=== PATIENT | male | born 1950 | race Caucasian/White ===

== ENCOUNTER 2016-06-30 12:47 | Inpatient (IN) | payer MEDICARE ==
[2016-06-30] MEDS ORDERED: methylPREDNISolone SOD SUCCI 125 MG/2 ML VIAL IV STA (13:14)
[2016-06-30] MEDS ORDERED: SODIUM CHLORIDE 0.9% 1,000 ML IV STA (13:14)
[2016-06-30] MEDS ORDERED: IPRATROPIUM-ALBUTEROL 3 ML NEB INHALATION STA (13:14)
[2016-06-30] MEDS ORDERED: MAGNESIUM SULFATE-D5W PMX 1 GM in DEXTROSE/WATER 1 100ML.BAG IVPB STA (13:16)
--- NOTE | 2016-06-30 13:16 | ED ---
SOB HPI - General Chief Complaint: Shortness of Breath Stated Complaint: Difficulty Breathing Time Seen by Provider: 06/30/16 13:14 Source: patient, RN notes reviewed Mode of arrival: wheelchair Limitations: no limitations - History of Present Illness Initial Comments: This is a 58-year-old male who is been on medication for about a week for shortness breath and states he started getting worse about 2 or 3 days ago sweaty been on the medication. He hasn't dyspnea on exertion no chest pain is very short of breath. He also states he has some peripheral edema. MD Complaint: shortness of breath - Related Data Home Medications Medication Instructions Recorded Confirmed Omalizumab [Xolair] 300 mg SQ QMONTH 01/30/16 06/30/16 Albuterol Inhaler [Ventolin Hfa 2 puff INHALATION RT-QID PRN 06/30/16 06/30/16 Inhaler] Albuterol Nebulized [Ventolin 2.5 mg INHALATION RT-QID 06/30/16 06/30/16 Nebulized] Budesonide/Formoterol Fumarate 2 puff INHALATION BID 06/30/16 06/30/16 [Symbicort 160-4.5 Mcg Inhaler] Lasix (Unk Dose) 1 tab PO DAILY PRN 06/30/16 06/30/16 Levofloxacin [Levaquin] 500 mg PO DAILY 06/30/16 06/30/16 methylPREDNISolone [Medrol Dose See Taper PO DAILY 06/30/16 06/30/16 Pack] predniSONE 10 mg PO DAILY 06/30/16 06/30/16 Previous Rx's Medication Instructions Recorded Finasteride [Proscar] 5 mg PO DAILY tab 02/16/16 Lisinopril [Zestril] 10 mg PO DAILY tab 02/16/16 Montelukast [Singulair] 10 mg PO HS tab 02/16/16 Allergies Allergy/AdvReac Type Severity Reaction Status Date / Time No Known Allergies Allergy Verified 06/30/16 14:17 Review of Systems ROS Statement: Those systems with pertinent positive or pertinent negative responses have been documented in the HPI. ROS Other: All systems not noted in ROS Statement are negative. Past Medical History Past Medical History: Asthma, COPD, Hypertension, Osteoarthritis (OA), Prostate Disorder, Seizure Disorder Additional Past Medical History / Comment(s): epilepsy- last seizure?1970-takes dilantin, bronchitis, DIVERTICULITIS(HAD RESECTION), home 02 3 liters as needed , enlarged prostate, had pnuemovax vaccine 2012, and prevnar 13 in summer 2015. History of Any Multi-Drug Resistant Organisms: None Reported Past Surgical History: Bowel Resection, Joint Replacement Additional Past Surgical History / Comment(s): rt knee replacement,HAD BOWEL RESECTION D/T DIVERTICULITIS Past Anesthesia/Blood Transfusion Reactions: No Reported Reaction Past Psychological History: No Psychological Hx Reported Additional Psychological History / Comment(s): PT LIVES AT HOME WITH HIS . 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 PT STATED GETS PANIC ATTACKS WHEN HAVING DIFFICULTY BREATHING Smoking Status: Former smoker Past Alcohol Use History: None Reported Additional Past Alcohol Use History / Comment(s): STARTED SMOKING AT AGE 19 quit 3-2014 Past Drug Use History: None Reported - Past Family History Father Family Medical History: CVA/TIA, Myocardial Infarction ([place]) Additional Family Medical History / Comment(s): IN 2005 AT AGE 87 Mother Family Medical History: Myocardial Infarction ([place]) Additional Family Medical History / Comment(s): AT AGE 68 [place] General Exam - General Exam Comments Initial Comments: This is a well-developed well-nourished awake alert oriented times x3 male Limitations: no limitations General appearance: alert, anxious Head exam: Present: atraumatic, normocephalic, normal inspection Eye exam: Present: normal appearance, PERRL, EOMI. Absent: scleral icterus, conjunctival injection, periorbital swelling ENT exam: Present: normal exam, mucous membranes moist Neck exam: Present: normal inspection. Absent: tenderness, meningismus, lymphadenopathy Respiratory exam: Present: accessory muscle use, decreased breath sounds. Absent: respiratory distress, wheezes, rales, rhonchi, stridor Cardiovascular Exam: Present: normal rhythm, tachycardia, normal heart sounds. Absent: systolic murmur, diastolic murmur, rubs, gallop, clicks GI/Abdominal exam: Present: soft, normal bowel sounds. Absent: distended, tenderness, guarding, rebound, rigid Extremities exam: Present: full ROM, normal capillary refill, pedal edema. Absent: tenderness, joint swelling, calf tenderness Back exam: Present: normal inspection Neurological exam: Present: alert, oriented X3, CN II-XII intact Psychiatric exam: Present: normal affect, normal mood Skin exam: Present: warm, dry, intact, normal color. Absent: rash Course Vital Signs 06/30/16 06/30/16 06/30/16 13:04 13:30 13:47 Temperature 97.4 F L Pulse Rate 128 H 76 Respiratory 22 18 Rate Blood Pressure 136/71 O2 Sat by Pulse 87 L Oximetry 06/30/16 06/30/16 13:57 14:47 Temperature Pulse Rate 80 90 Respiratory 22 Rate Blood Pressure 99/65 O2 Sat by Pulse 94 L Oximetry - Reevaluation(s) Reevaluation #1: 06/30/16 15:40 Reevaluation patient reveals he is still dyspneic and demonstrating diffuse wheezing. The exertion causes dyspnea. Medical Decision Making - Medical Decision Making I did discuss findings with the patient and his the patient will be admitted with Dr. Miguel and consultation. The case is to be discussed with . - Lab Data Result diagrams: 06/30/16 13:25 06/30/16 13:25 Lab Results 06/30/16 06/30/16 06/30/16 Range/Units 13:25 13:25 13:25 WBC 6.1 (3.8-10.6) k/uL RBC 4.87 (4.30-5.90) m/uL Hgb 15.4 (13.0-17.5) gm/dL Hct 46.7 (39.0-53.0) % MCV 95.9 (80.0-100.0) fL MCH 31.5 (25.0-35.0) pg MCHC 32.9 (31.0-37.0) g/dL RDW 12.5 (11.5-15.5) % Plt Count 203 (150-450) k/uL Neutrophils % 55 % Lymphocytes % 24 % Monocytes % 7 % Eosinophils % 11 % Basophils % 1 % Neutrophils # 3.4 (1.3-7.7) k/uL Lymphocytes # 1.5 (1.0-4.8) k/uL Monocytes # 0.4 (0-1.0) k/uL Eosinophils # 0.7 (0-0.7) k/uL Basophils # 0.0 (0-0.2) k/uL PT (9.0-12.0) sec INR (<1.1) APTT (22.0-30.0) sec D-Dimer (<0.60) mg/L FEU Sodium 144 (137-145) mmol/L Potassium 4.2 (3.5-5.1) mmol/L Chloride 107 (98-107) mmol/L Carbon Dioxide 26 (22-30) mmol/L Anion Gap 11 mmol/L BUN 13 (9-20) mg/dL Creatinine 0.80 (0.66-1.25) mg/dL Est GFR (MDRD) Af Amer >60 (>60 ml/min/1.73 sqM) Est GFR (MDRD) Non-Af >60 (>60 ml/min/1.73 sqM) Glucose 98 (74-99) mg/dL Calcium 9.1 (8.4-10.2) mg/dL Magnesium 1.9 (1.6-2.3) mg/dL Total Bilirubin 0.4 (0.2-1.3) mg/dL AST 22 (17-59) U/L ALT 33 (21-72) U/L Alkaline Phosphatase 97 (38-126) U/L Total Creatine Kinase 84 (55-170) U/L CK-MB (CK-2) 4.5 H* (0.0-2.4) ng/mL CK-MB (CK-2) Rel Index 5.4 Troponin I <0.012 (0.000-0.034) ng/mL NT-Pro-B Natriuret Pep pg/mL Total Protein 6.6 (6.3-8.2) g/dL Albumin 4.0 (3.5-5.0) g/dL 06/30/16 06/30/16 Range/Units 13:25 13:25 WBC (3.8-10.6) k/uL RBC (4.30-5.90) m/uL Hgb (13.0-17.5) gm/dL Hct (39.0-53.0) % MCV (80.0-100.0) fL MCH (25.0-35.0) pg MCHC (31.0-37.0) g/dL RDW (11.5-15.5) % Plt Count (150-450) k/uL Neutrophils % % Lymphocytes % % Monocytes % % Eosinophils % % Basophils % % Neutrophils # (1.3-7.7) k/uL Lymphocytes # (1.0-4.8) k/uL Monocytes # (0-1.0) k/uL Eosinophils # (0-0.7) k/uL Basophils # (0-0.2) k/uL PT 11.3 (9.0-12.0) sec INR 1.1 (<1.1) APTT 26.2 (22.0-30.0) sec D-Dimer <0.17 (<0.60) mg/L FEU Sodium (137-145) mmol/L Potassium (3.5-5.1) mmol/L Chloride (98-107) mmol/L Carbon Dioxide (22-30) mmol/L Anion Gap mmol/L BUN (9-20) mg/dL Creatinine (0.66-1.25) mg/dL Est GFR (MDRD) Af Amer (>60 ml/min/1.73 sqM) Est GFR (MDRD) Non-Af (>60 ml/min/1.73 sqM) Glucose (74-99) mg/dL Calcium (8.4-10.2) mg/dL Magnesium (1.6-2.3) mg/dL Total Bilirubin (0.2-1.3) mg/dL AST (17-59) U/L ALT (21-72) U/L Alkaline Phosphatase (38-126) U/L Total Creatine Kinase (55-170) U/L CK-MB (CK-2) (0.0-2.4) ng/mL CK-MB (CK-2) Rel Index Troponin I (0.000-0.034) ng/mL NT-Pro-B Natriuret Pep 80 pg/mL Total Protein (6.3-8.2) g/dL Albumin (3.5-5.0) g/dL - EKG Data -: EKG Interpreted by Mi EKG shows normal: sinus rhythm (Sinus tachycardia with a rate of 104. Interval 168 QRS duration 90 QT/QTC of 336/441 occasional PVCs no acute ST-T wave changes.) - Radiology Data Radiology results: report reviewed (Trays reveal no acute findings.), image reviewed Critical Care Time Critical Care Time: Yes Critical Care Time: 32 minutes of critical care time which included the initial presentation with history physical lab and x-ray orders evaluation of the above. Reevaluation the patient to responsive therapy. Discussion with the patient family regarding the findings discussion with the physician covering Dr. Rose. Orders and documentation the above. Disposition Clinical Impression: Acute exacerbation of chronic obstructive airways disease, Adult respiratory distress syndrome, Failure of outpatient treatment Disposition: ADMITTED IP TO THIS HOSP Condition: Stable
[2016-06-30 13:43] LABS: Basophils % (A) 1 %; CH 32.2; CHCM 33.7; Eosinophils # (A) 0.7 k/uL (0-0.7); Eosinophils % (A) 11 %; HCT 46.7 % (39.0-53.0); HDW 2.31; HGB 15.4 gm/dL (13.0-17.5); Luc # (Auto) 0.15; Luc % (Auto) 2; Lymphocytes # (A) 1.5 k/uL (1.0-4.8); Lymphocytes % (A) 24 %; MCH 31.5 pg (25.0-35.0); MCHC 32.9 g/dL (31.0-37.0); MCV 95.9 fL (80.0-100.0); Mean Platelet Volume 6.5; Monocytes # (A) 0.4 k/uL (0-1.0); Monocytes % (A) 7 %; Neutrophils # (A) 3.4 k/uL (1.3-7.7); Neutrophils % (A) 55 %; RBC 4.87 m/uL (4.30-5.90); RDW 12.5 % (11.5-15.5); WBC 6.1 k/uL (3.8-10.6); WBC (Perox) 6.06
[2016-06-30 13:55] LABS: INR 1.1 (<1.1); Partial Thromboplastin Time 26.2 sec (22.0-30.0); Prothrombin Time 11.3 sec (9.0-12.0)
[2016-06-30 13:59] LABS: ALT 33 U/L (21-72); AST 22 U/L (17-59); Alkaline Phosphatase 97 U/L (38-126); Anion Gap 11 mmol/L; Blood Urea Nitrogen 13 mg/dL (9-20); Calcium 9.1 mg/dL (8.4-10.2); Carbon Dioxide 26 mmol/L (22-30); Chloride 107 mmol/L (98-107); Glucose 98 mg/dL (74-99); Magnesium 1.9 mg/dL (1.6-2.3); Non-African American GFR(MDRD) >60 (>60 ml/min/1.73 sqM); Potassium 4.2 mmol/L (3.5-5.1); Sodium 144 mmol/L (137-145); Total Bilirubin 0.4 mg/dL (0.2-1.3); Total Protein 6.6 g/dL (6.3-8.2)
[2016-06-30 14:01] LABS: Creatine Kinase 84 U/L (55-170)
[2016-06-30 14:14] LABS: Troponin I <0.012 ng/mL (0.000-0.034)
[2016-06-30 14:24] LABS: Creatine Kinase MB 4.5 ng/mL (0.0-2.4)
--- NOTE | 2016-06-30 14:53 | XR ---
EXAMINATION TYPE: XR chest 2V DATE OF EXAM: 06/30/2016 2:46 PM COMPARISON: Prior chest x-ray February 13, 2016. HISTORY: COPD with difficulty in breathing. TECHNIQUE: Frontal and lateral views of the chest are obtained. FINDINGS: Underlying emphysematous change is present. There is no focal air space opacity, pleural e ffusion, or pneumothorax seen. The cardiac silhouette size is within normal limits with atherosclero tic thoracic aorta. The osseous structures are demineralized. IMPRESSION: Chronic emphysematous change without acute pulmonary process. No significant change from prior.
[2016-06-30] MEDS: IPRATROPIUM-ALBUTEROL 3 ML NEB INHALATION SCH ×3 (18:39→23:05)
[2016-06-30 18:50] VITALS: BMI 23.6
[2016-06-30] MEDS: methylPREDNISolone SOD SUCCI 125 MG/2 ML VIAL IV SCH ×2 (20:30→23:39)
[2016-06-30 21:00] LABS: Glucose,Whole Blood 159 mg/dL (75-99)
[2016-06-30] MEDS: MONTELUKAST 10 MG TAB PO SCH (21:32)
[2016-06-30] MEDS ORDERED: ALBUTEROL INHALER 60 PUFF/8 GM INHALER INHALATION PRN (22:18)
[2016-06-30] MEDS ORDERED: LASIX PO PRN (22:18)
[2016-06-30] MEDS ORDERED: MAGNESIUM HYDROXIDE 2,400 MG/10 ML CUP PO PRN (22:56)
[2016-06-30] MEDS: SODIUM CHLORIDE 0.9% 1,000 ML IV SCH (23:41)
[2016-07-01] MEDS: IPRATROPIUM-ALBUTEROL 3 ML NEB INHALATION SCH ×5 (03:24→19:48)
[2016-07-01] MEDS: methylPREDNISolone SOD SUCCI 125 MG/2 ML VIAL IV SCH ×4 (05:57→23:25)
[2016-07-01 07:40] LABS: Glucose,Whole Blood 117 mg/dL (75-99)
[2016-07-01] MEDS: BUDESONIDE 0.5 MG/2 ML NEBU INHALATION SCH ×2 (07:56→19:48)
[2016-07-01] MEDS ORDERED: ALBUTEROL NEBULIZED 2.5 MG/3 ML INHALATION SCH (08:00)
--- NOTE | 2016-07-01 08:27 | HP ---
DATE OF ADMISSION: 06/30/2016 ADMISSION HISTORY AND PHYSICAL. His data: 5 feet 10 inches and height and weight 74.84 kg BSA 1.92 sq m, BMI 23.7 kg/sq m. Allergy is unknown. HISTORY AND CHIEF COMPLAINT: The patient came to the emergency room where he was seen by Dr. Christian Funes in the emergency room and he was in severe shortness of breath. Failure of outpatient treatment with the steroid as well as the Levaquin has been failed as an outpatient as was treated by Dr. Rose. HISTORY OF PRESENT ILLNESS: Mr. Sam Amaya who is 66-year-old white male, has a chronic exacerbation of COPD with chronic respiratory failure and he has been treated by Dr. Rose and Dr. Valdez Miguel where he was treated with Xolair and also he has underlying history of hypertension. Patient has presented to the emergency room with failure of the treatment as he was on Levaquin 500 mg daily and Medrol Dosepak with no improvement. However, he became worsening. He has also increased heart rate with tachycardia with difficulty walking due to his symptoms of the shortness of breath using his extra respiratory muscle and the intercostal of muscle of his chest. His past medical history of COPD, chronic oxygen and chronic respiratory failure. He has been treated by Dr. Rose and Dr. Valdez Miguel. His other medical history includes hypertension, benign prostatic hypertrophy. SOCIAL HISTORY: , has one daughter and grandchildren. HABITS: History of ex-smoker for he smoked for 35 years and 1 pack per day. Currently he quit smoking for the last 10 years. REVIEW OF SYSTEMS: Neuropsychiatry: Negative. He was ambulatory. However, severe shortness of breath. CARDIOVASCULAR: He had history of palpitation, respiratory severe shortness of breath with wheezing and inspiratory, expiratory wheezes with no relief from outpatient treatment. GI: He had history of chronic constipation and he had a distended abdomen; however, he stated that he wants to go to the bathroom and still distended. We will see tonight after he goes to the bathroom and if he had a good bowel movement or any further treatment. MUSCULOSKELETAL: He has generalized weakness. Psychiatry: No evidence of depression. Neurology: No history of stroke in the past. REVIEW OF SYSTEMS: Negative except for the respiratory with the shortness of breath, as well as GI with mild distention and he feels comfortable when he stands up as well as his tachycardia secondary to the pulmonary disease. PHYSICAL EXAMINATION: His vital signs indicating on admission he was 108, respiratory rate. His blood pressure uncontrolled 159/95 with Lisinopril. However, he stated that he has significant coughing which could be considered with the underlying Lisinopril. Respiratory rate was more than 22 per minute. However, recorded as 18. He is on 2 liters nasal cannula with 97%. HEENT: Head was normocephalic, atraumatic. Pupils equal and reactive. Oropharynx he had normal natural teeth. Uvula midline. However, in the ( ) he had specks of white spots indicating clinical yeast could be associated with the steroids as well as the current antibiotic and we will be starting him on Diflucan. The neck was supple. NOSE: No rhinitis. No JVD. No thyromegaly. No lymphadenopathy. Trachea midline. His chest is increased anteroposterior diameter with hyperexpansion. Chest x-ray was negative for pneumonia. However, he is coughing with the underlying tracheobronchitis. HEART: PMI in the fifth intercostal space outside midclavicular line with the underlying mild hypertension with mild hypertensive heart disease and with the tachycardia intermittently. ABDOMEN: Distended and rhythm on percussion. However, he wants to go to the have a bowel movement with have shortness of breath with walking to the bathroom and probably he may need bedside commode as I talked to the nurses. His extremity has a trace edema bilaterally with the question presence of pulmonary hypertension. NEUROLOGICAL: Examination cranial nerves II through XII intact. Motor and sensory intact. Reflexes was normal and no tremors. ASSESSMENT: 1. Failure of outpatient treatment for the exacerbation of chronic obstructive pulmonary disease. 2. Chronic obstructive pulmonary disease with acute exacerbation with the underlying chronic respiratory area with need for oxygen. 3. Cough with the possibility of tracheobronchitis in spite that chest x-ray is negative versus adverse effect of the Lisinopril, the SHELBY inhibitor. CK-MB was mildly elevated 4.5 on the laboratories and normal, albumin and influenza A and B was negative. On the chemistry, he had normal renal function and his glucose on admission was 98; however, with steroids started in the ER indicating the blood sugar was increased. His PT and INR was stable. D-dimer was less than 0.17 and he is on DVT prophylaxis. His white count was 6.1. The hemoglobin was 15.4. PLAN: We will be obtaining echocardiogram to rule out pulmonary hypertension as well. Continuing the current treatment and with steroids. Discontinue the Levaquin has not been effective and starting him on Zosyn IV piggyback q.12 hour as well as we are going to continue with the inhalation therapy with the albuterol and ipratropium combination as well as Pulmicort 0.5 mg q.12 hours and we will obtain laboratory tomorrow including serial magnesium to evaluate as well as lipid profile and obtain the echocardiogram to rule out pulmonary hypertension.
[2016-07-01] MEDS ORDERED: ENOXAPARIN 30 MG/0.3 ML SYRINGE SQ SCH (09:00)
[2016-07-01] MEDS ORDERED: LISINOPRIL 10 MG TAB PO SCH (09:00)
[2016-07-01] MEDS ORDERED: PIPERACILLIN-TAZOBACTAM 3.375 GM in DEXTROSE/WATER 1 50ML.BAG IVPB SCH (09:00)
[2016-07-01] MEDS ORDERED: LEVOFLOXACIN 500 MG TAB PO SCH (09:00)
[2016-07-01] MEDS: DILTIAZEM ORAL 30 MG TAB PO SCH ×3 (09:32→20:57)
[2016-07-01] MEDS: FINASTERIDE 5 MG TAB PO SCH (09:32)
[2016-07-01] MEDS: PIPERACILLIN-TAZOBACTAM 3.375 GM in DEXTROSE/WATER 1 50ML.BAG IVPB SCH ×2 (09:32→17:20)
[2016-07-01 09:36] LABS: Basophils % (A) 0 %; CH 32.1; CHCM 33.5; Eosinophils % (A) 0 %; HCT 45.4 % (39.0-53.0); HDW 2.31; HGB 15.1 gm/dL (13.0-17.5); Luc # (Auto) 0.04; Luc % (Auto) 1; Lymphocytes # (A) 0.7 k/uL (1.0-4.8); Lymphocytes % (A) 11 %; MCHC 33.3 g/dL (31.0-37.0); MCV 96.1 fL (80.0-100.0); Mean Platelet Volume 7.4; Monocytes # (A) 0.1 k/uL (0-1.0); Monocytes % (A) 2 %; Neutrophils # (A) 5.3 k/uL (1.3-7.7); Neutrophils % (A) 86 %; RBC 4.72 m/uL (4.30-5.90); RDW 12.4 % (11.5-15.5); WBC 6.2 k/uL (3.8-10.6); WBC (Perox) 6.67
[2016-07-01 09:47] LABS: ALT 32 U/L (21-72); AST 26 U/L (17-59); Alkaline Phosphatase 99 U/L (38-126); Anion Gap 11 mmol/L; Blood Urea Nitrogen 15 mg/dL (9-20); Calcium 9.4 mg/dL (8.4-10.2); Carbon Dioxide 26 mmol/L (22-30); Chloride 104 mmol/L (98-107); Cholesterol 161 mg/dL (<200); Glucose 126 mg/dL (74-99); HDL Cholesterol 59 mg/dL (40-60); Non-African American GFR(MDRD) >60 (>60 ml/min/1.73 sqM); Sodium 141 mmol/L (137-145); Total Bilirubin 0.8 mg/dL (0.2-1.3); Triglycerides 39 mg/dL (<150)
[2016-07-01 09:55] LABS: Potassium 4.8 mmol/L (3.5-5.1)
--- NOTE | 2016-07-01 10:58 | ECHOF ---
Referral Reason:Pulmonary hypertension, tachycardia on admission MEASUREMENTS -------- HEIGHT: 177.8 cm WEIGHT: 74.8 kg BP: 102/68 RVIDd: 2.4 cm (< 3.3) IVSd: 0.8 cm (0.6 - 1.1) LVIDd: 4.2 cm (3.9 - 5.3) LVPWd: 0.9 cm (0.6 - 1.1) IVSs: 1.5 cm LVIDs: 2.8 cm LVPWs: 1.1 cm LA Diam: 3.1 cm (2.7 - 3.8) LAESV Index (A-L): 16.76 ml/m Ao Diam: 3.1 cm (2.0 - 3.7) AV Cusp: 1.8 cm (1.5 - 2.6) MV EXCURSION: 12.842 mm (> 18.000) MV EF SLOPE: 48 mm/s (70 - 150) EPSS: 0.6 cm MV E Dalton: 0.96 m/s MV DecT: 162 ms MV A Dalton: 0.76 m/s MV E/A Ratio: 1.26 RAP: 5.00 mmHg RVSP: 15.73 mmHg FINDINGS -------- Sinus rhythm with extra systolic beats. This was a technically good study. Left ventricular wall thickness is normal. Overall left ventricular systolic function is low-normal with, an EF between 50 - 55 %. The right ventricle is normal in size. Normal LA size by volume 22+/-6 ml/m2. The right atrium is normal in size. Aortic valve is trileaflet and is mildly thickened. The mitral valve leaflets are mild to moderately thickened. Mild mitral annular calcification present. Mild mitral regurgitation is present. Trace tricuspid regurgitation present. Right ventricular systolic pressure is normal at < 35 mmHg. Trace/mild (physiologic) pulmonic regurgitation. The aortic root size is normal. Normal inferior vena cava with normal inspiratory collapse consistent with estimated right atrial pressure of 5 mmHg. Echo free space may represent effusion or a pericardial fat pad. CONCLUSIONS -------- 1. Sinus rhythm with extra systolic beats. 2. Mild mitral regurgitation is present. 3. Trace tricuspid regurgitation present. 4. Right ventricular systolic pressure is normal at < 35 mmHg. 5. Trace/mild (physiologic) pulmonic regurgitation. 6. The aortic root size is normal. 7. Echo free space may represent effusion or a pericardial fat pad. 8. This was a technically good study. 9. Left ventricular wall thickness is normal. 10. Overall left ventricular systolic function is low-normal with, an EF between 50 - 55 %. 11. The right ventricle is normal in size. 12. Normal LA size by volume 22+/-6 ml/m2. 13. Aortic valve is trileaflet and is mildly thickened. 14. The mitral valve leaflets are mild to moderately thickened. 15. Mild mitral annular calcification present. DOCUMENTATION SPEC: Scott Cruz RDCS
[2016-07-01 12:32] LABS: Glucose,Whole Blood 103 mg/dL (75-99)
[2016-07-01] MEDS ORDERED: PHENYTOIN SODIUM EXTENDED 100 MG CAP PO SCH (14:15)
[2016-07-01] MEDS: SODIUM CHLORIDE 0.9% 1,000 ML IV SCH (15:31)
[2016-07-01] MEDS ORDERED: RX INFO: IV CONTRAST WAS GIVEN 1 EACH MISC MISCELLANE PRN (16:02)
--- NOTE | 2016-07-01 16:03 | P.CNPUL ---
History of Present Illness Consult date: 07/01/16 Reason for consult: dyspnea, cough, COPD Chief complaint: Shortness of breath History of present illness: This is a 66-year-old male who presented emergency department complaining of shortness of breath which was ongoing for several days. The patient is well- known to [facility] and has known very severe COPD and asthma. The patient states he has been compliant with his breathing treatments and Xolair. He denies fevers and chills. He states he gets short of breath even with minimal exertion. He states he is to take frequent breaks when walking around the house. He does have oxygen at home and wears it as needed. The patient denies any sick contacts or recent travel. He states he is feeling much better today. He is ambulating in the room without difficulty. Review of Systems All systems: negative Past Medical History Past Medical History: Asthma, COPD, Hypertension, Osteoarthritis (OA), Prostate Disorder, Seizure Disorder Additional Past Medical History / Comment(s): epilepsy- last seizure?1970-takes dilantin, bronchitis, DIVERTICULITIS(HAD RESECTION), home 02 3 liters as needed , enlarged prostate, had pnuemovax vaccine 2012, and prevnar 13 UTD ON FLU VACCINE. History of Any Multi-Drug Resistant Organisms: None Reported Past Surgical History: Bowel Resection, Joint Replacement Additional Past Surgical History / Comment(s): rt knee replacement,HAD BOWEL RESECTION D/T DIVERTICULITIS Past Anesthesia/Blood Transfusion Reactions: No Reported Reaction Past Psychological History: No Psychological Hx Reported Additional Psychological History / Comment(s): PT LIVES AT HOME WITH HIS . 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 PT STATED GETS PANIC ATTACKS WHEN HAVING DIFFICULTY BREATHING Smoking Status: Former smoker Past Alcohol Use History: None Reported Additional Past Alcohol Use History / Comment(s): STARTED SMOKING AT AGE 19 quit -2014 Past Drug Use History: None Reported - Past Family History Father Family Medical History: CVA/TIA, Myocardial Infarction ([place]) Additional Family Medical History / Comment(s): IN 2005 AT AGE 87 Mother Family Medical History: Myocardial Infarction ([place]) Additional Family Medical History / Comment(s): AT AGE 68 FROM [place] Medications and Allergies Home Medications Medication Instructions Recorded Confirmed Type Omalizumab [Xolair] 300 mg SQ QMONTH 01/30/16 07/01/16 History Albuterol Inhaler [Ventolin Hfa 2 puff INHALATION RT-QID PRN 06/30/16 07/01/16 History Inhaler] Albuterol Nebulized [Ventolin 2.5 mg INHALATION RT-QID 06/30/16 07/01/16 History Nebulized] Budesonide/Formoterol Fumarate 2 puff INHALATION RT-BID 06/30/16 07/01/16 History [Symbicort 160-4.5 Mcg Inhaler] Levofloxacin [Levaquin] 500 mg PO DAILY 06/30/16 06/30/16 History methylPREDNISolone [Medrol Dose See Taper PO DAILY 06/30/16 06/30/16 History Pack] predniSONE 10 mg PO DAILY 06/30/16 07/01/16 History Furosemide [Lasix] 20 mg PO DAILY PRN 07/01/16 07/01/16 History LORazepam [Ativan] 1 mg PO BID PRN 07/01/16 07/01/16 History Phenytoin Sodium Extended 200 mg PO BID 07/01/16 07/01/16 History [Dilantin] Allergies Allergy/AdvReac Type Severity Reaction Status Date / Time No Known Allergies Allergy Verified 06/30/16 14:17 Physical Exam Osteopathic Statement: *. No significant issues noted on an osteopathic structural exam other than those noted in the History and Physical/Consult. Vitals: Vital Signs Temp Pulse Pulse Resp BP BP Pulse Ox 07/01/16 12:11 84 07/01/16 11:58 80 07/01/16 08:10 82 07/01/16 07:56 78 07/01/16 07:00 96.8 F L 87 20 118/86 91 L 07/01/16 03:38 84 07/01/16 03:24 80 06/30/16 23:15 78 06/30/16 23:05 78 06/30/16 23:00 97.0 F L 98 20 102/68 94 L 06/30/16 18:56 97.4 F L 78 18 159/95 97 06/30/16 18:53 78 06/30/16 18:39 74 06/30/16 18:03 108 H 18 159/95 97 Intake and Output 07/01/16 07/01/16 07/01/16 06:59 14:59 22:59 Intake Total 240 Output Total 1500 Balance -1500 240 Intake: Oral 240 Output: Urine 1500 Gen.: Patient is alert and oriented 3, no acute distress, ambulating in room Cardiovascular: Regular rate and rhythm, S1/S2 Lungs: Diminished breath sounds bilaterally with end expiratory wheezing and prolonged expiratory phase Extremities: No edema Abdomen: Soft nontender nondistended positive bowel sounds Results - Laboratory Findings CBC and BMP: 07/01/16 08:44 07/01/16 08:44 PT/INR, D-dimer PT 11.3 sec (9.0-12.0) 06/30/16 13:25 INR 1.1 (<1.1) 06/30/16 13:25 D-Dimer <0.17 mg/L FEU (<0.60) 06/30/16 13:25 Abnormal lab findings: Abnormal Labs 06/30/16 07/01/16 07/01/16 20:23 07:18 08:44 Lymphocytes # 0.7 L Glucose POC Glucose (mg/dL) 159 H 117 H 07/01/16 07/01/16 08:44 12:19 Lymphocytes # Glucose 126 H POC Glucose (mg/dL) 103 H - Diagnostic Findings Chest x-ray: report reviewed, image reviewed Assessment and Plan Plan: Acute exacerbation of COPD and asthma, severe persistent, ALLERGIC Tracheobronchitis Bronchospasm History of tobacco abuse Dyspnea on exertion Hypertension Questionable right middle lobe nodule on chest x-ray O2 to maintain saturation greater than equal to 88% Bronchodilators and Pulmicort IV Solu-Medrol Singulair Antibiotics: Discontinue Zosyn, will start Levaquin Patient receive Xolair as an outpatient Will check CT of the chest regarding possible pulmonary nodule Incentive spirometry and pulmonary hygiene Continued smoking cessation Continue pulmonary rehab as an outpatient
[2016-07-01 17:32] LABS: Glucose,Whole Blood 124 mg/dL (75-99)
--- NOTE | 2016-07-01 17:38 | CT ---
EXAMINATION TYPE: CT chest w con DATE OF EXAM: 07/01/2016 5:30 PM COMPARISON: NONE HISTORY: cough CT DLP: 306.1 mGycm Automated exposure control for dose reduction was used. CONTRAST: CT scan of the chest is performed with IV Contrast, patient injected with 100 mL of Omnipaque 300. Th ere are 3-D post processed images. FINDINGS: There is diffuse pulmonary emphysema. There is no evidence of a pulmonary mass. There is no pleural e ffusion. Heart size is normal. There is no pericardial effusion. There is no evidence of thoracic aor tic aneurysm or dissection. I see no filling defects in the pulmonary arteries. There are no hilar ma sses. There is no mediastinal adenopathy. I see no bony destructive process. IMPRESSION: Emphysema. Mild atherosclerotic vascular disease. No evidence of pulmonary embolism.
[2016-07-01] MEDS: LEVOFLOXACIN 500 MG TAB PO SCH (18:29)
[2016-07-01] MEDS: PHENYTOIN SODIUM EXTENDED 100 MG CAP PO SCH (20:15)
[2016-07-01] MEDS: MONTELUKAST 10 MG TAB PO SCH (20:16)
[2016-07-01 21:27] LABS: Glucose,Whole Blood 131 mg/dL (75-99)
[2016-07-02] MEDS: IPRATROPIUM-ALBUTEROL 3 ML NEB INHALATION PRN (05:28)
[2016-07-02] MEDS: methylPREDNISolone SOD SUCCI 125 MG/2 ML VIAL IV SCH (05:50)
--- NOTE | 2016-07-02 07:28 | PN ---
DATE OF SERVICE: 07/01/2016 The patient is a 66-year-old white male, . His attending physician Dr. Rose who is out of town and I am covering for Dr. Rose. The patient seen today, evaluated. He felt much improvement significantly and also I found that the pulmonary did have consultation on the chart and seen by Dr. Sandra Ziegler DO, the pulmonary working with [facility], Dr. Valdez Miguel who stated that the patient admitted through the emergency room and patient well known to [facility] and known to have very severe COPD with asthma. He is under the treatment of Xolair and he denied any fever with chills and he gets short of breath with minimal exertion. He takes frequent breaks when he is around his house and he is on oxygen ( ) at home. He had no contacts or denied any attachment with any infection with any of the family members. With the past, history that he has asthma, COPD, hypertension, osteoarthritis, prostate disorder and seizure disorder and we started on the Dilantin that he has been on and we will be checking Dilantin level in a.m. His last seizure was in 1969 and he takes Dilantin for that. He had history of diverticulitis and has a resection and he used 3 L of oxygen nasal cannula as needed. He has his Pneumovax in 2012, Prevnar 13 and flu vaccine. He had joint replacement of the knee. On the examination today, his vitals signs: His heart rate was tachycardiac currently in the 80s after we changed his medication and reported temperature 97.2, pulse 80s and pulse rate 102 to 98 per minute, regular sinus and his respiratory rate was 20, his blood pressure was 159/95. However with the start of the medication gradually improved to 102/68 and 105/61 with a mean pressure 75. His blood pressure was higher than that in the ER as patient stated. On the physical exam today, the patient is conscious, alert, oriented. He is able to raise his arm. He is feeling much better with his breathing and still he is short of breath and expiratory and inspiratory wheezes. His cough is improving and we discontinued the lisinopril. His Zosyn has been discontinued by the pulmonary and placed on Levaquin. The neck was supple. No JVD. No thyromegaly. His chest is markedly improvement with still scattered wheezes and rhonchi. The heart is PMI in the fifth intercostal space, normal S1, S2. We did the echocardiogram, which was essentially normal and we did the CT scan of the chest was negative as well and he had bladder scan. He did not have retention of the urine as has been stable, able to urinate. The distention of the abdomen is still present and we will be using some of the stool softener to help his bowel movement. His extremities with no edema. Positive pulses and we did not start him on any diuretics at this point. He is on steroids for his medication and he is also on finasteride and he is now currently on 500 mg of Levaquin per the pulmonary. Currently he is on ( ) 60 mg IV q.6 hours and probably tomorrow we will be changing the Solu-Medrol to decrease it with the effect on the hyperglycemia and will see with the pulmonary with their suggestion in the point of the steroids. Patient currently is improving and we will continue the current treatment.
[2016-07-02 08:00] LABS: Glucose,Whole Blood 111 mg/dL (75-99)
[2016-07-02] MEDS: IPRATROPIUM-ALBUTEROL 3 ML NEB INHALATION SCH ×4 (08:18→20:05)
[2016-07-02] MEDS: BUDESONIDE 0.5 MG/2 ML NEBU INHALATION SCH ×2 (08:18→20:05)
[2016-07-02 09:02] LABS: Basophils % (A) 0 %; CH 32.1; CHCM 33.5; Eosinophils % (A) 0 %; HCT 45.3 % (39.0-53.0); HDW 2.26; Luc # (Auto) 0.03; Luc % (Auto) 0; Lymphocytes # (A) 0.5 k/uL (1.0-4.8); Lymphocytes % (A) 6 %; MCH 31.8 pg (25.0-35.0); MCHC 33.1 g/dL (31.0-37.0); MCV 96.2 fL (80.0-100.0); Mean Platelet Volume 7.2; Monocytes # (A) 0.2 k/uL (0-1.0); Monocytes % (A) 2 %; Neutrophils # (A) 8.2 k/uL (1.3-7.7); Neutrophils % (A) 91 %; RBC 4.71 m/uL (4.30-5.90); RDW 12.5 % (11.5-15.5); WBC (Perox) 9.44
[2016-07-02] MEDS: DILTIAZEM ORAL 30 MG TAB PO SCH ×3 (10:22→21:43)
[2016-07-02] MEDS: ENOXAPARIN 40 MG/0.4 ML SYRINGE SQ SCH (10:23)
[2016-07-02] MEDS: FINASTERIDE 5 MG TAB PO SCH (10:23)
[2016-07-02] MEDS: PHENYTOIN SODIUM EXTENDED 100 MG CAP PO SCH ×2 (10:23→21:43)
[2016-07-02] MEDS: FAMOTIDINE 20 MG TAB PO SCH (10:23)
--- NOTE | 2016-07-02 11:16 | PN ---
DATE OF SERVICE: 07/02/2016 The patient is a 66-year-old male who is seen up ambulating in the room. Did have a bowel movement this morning. Feels much better respiratory-gallagher, his breathing has improved. Cough has improved as well. The patient did bring up some white thick sputum this morning. The patient is afebrile, hemodynamically stable, in no acute distress. ON PHYSICAL EXAM: VITAL SIGNS: Temp is 96.1, heart rate is 68, respiratory rate is 20, blood pressure is 115/68, O2 saturation 94% on 2 L O2 via nasal cannula. HEENT: Head is normocephalic, atraumatic. NECK: Supple. Trachea is midline. LUNGS: With decreased breath sounds with end-expiratory wheeze and prolonged expiratory phase. HEART: S1 and S2 are heard. Not tachycardic. ABDOMEN: Soft. EXTREMITIES: With trace edema. NEUROLOGIC: The patient is awake, alert, oriented. LABS: White count is 9.0, hemoglobin is 15.0, hematocrit 45.3 with 213,000 platelets. Sputum culture is pending. IMAGING: CT of the chest shows emphysema, mild atherosclerotic vascular disease and no evidence of pulmonary embolism. Echocardiogram was reviewed and shows no pulmonary hypertension. IMPRESSION: 1. Acute exacerbation of chronic obstructive pulmonary disease and asthma, severe persistent allergic. 2. Emphysema. 3. Tracheobronchitis. 4. Bronchospasms. 5. History of tobacco abuse. 6. Hypertension. PLAN: Continue O2 to maintain saturations greater than or equal to 88%. Continue current medications which have been reviewed with bronchodilators and aerosolized steroids. We will start weaning the IV Solu-Medrol to 60 q.8 hours. Continue the Singulair. Continue antibiotics. The patient will continue on Xolair as an outpatient. Continue incentive spirometry and pulmonary hygiene. Continue smoking cessation. Continue pulmonary rehab as an outpatient. We will follow the patient closely with you, making further changes as necessary.
[2016-07-02 12:28] LABS: Glucose,Whole Blood 119 mg/dL (75-99)
[2016-07-02] MEDS ORDERED: methylPREDNISolone SOD SUCCI 125 MG/2 ML VIAL IV SCH (16:00)
[2016-07-02] MEDS: LEVOFLOXACIN 500 MG TAB PO SCH (17:02)
[2016-07-02] MEDS: SODIUM CHLORIDE 0.9% 1,000 ML IV SCH (17:02)
[2016-07-02 17:21] LABS: Glucose,Whole Blood 99 mg/dL (75-99)
[2016-07-02] MEDS ORDERED: LORazepam 1 MG TAB PO PRN (21:29)
[2016-07-02] MEDS ORDERED: FUROSEMIDE 20 MG TAB PO PRN (21:29)
--- NOTE | 2016-07-02 21:35 | P.PN ---
Subjective This is dictation by Dr[facility] Keen[facility] Guzman [facility]. Patient seen evaluated [id number] Patient stated that he has been improving significantly and able to walk outside the room in the hallway as well as he is able to breeze without significant shortness of breath as he came at that time. His vital signs stable. On exam: HEENT was negative neck was supple no JVD no thyromegaly no lymphadenopathy. Chest appeared that he needs to expectorate have a some rhonchi's and could not get it out and we will be planning for chest physiotherapy for sputum production. Heart regular sinus rhythm. Abdomen soft positive bowel sounds. Extremities no edema and positive pulses Neuro conscious alert oriented 3 ambulatory. Assessment and plan Will start chest physiotherapy #1 #2 we will be decreasing his steroids to 40 mg every 12 lower with the plan for switching to oral steroid with the intention of stability and subsequently discharged in 24-48 hour period Objective - Vital Signs Vital signs: Vital Signs Temp 96.7 F L 07/02/16 15:00 Pulse 70 07/02/16 20:18 Resp 16 07/02/16 15:41 BP 129/55 07/02/16 15:00 Pulse Ox 97 07/02/16 15:00 Intake & Output 07/02/16 07/02/16 07/03/16 06:59 18:59 06:59 Other: # Voids 1 3 - Labs CBC & Chem 7: 07/02/16 08:18 07/01/16 08:44 Labs: Abnormal Lab Results - Last 24 Hours (Table) 07/02/16 07/02/16 07/02/16 Range/Units 07:54 08:18 12:23 Neutrophils # 8.2 H (1.3-7.7) k/uL Lymphocytes # 0.5 L (1.0-4.8) k/uL POC Glucose (mg/dL) 111 H 119 H (75-99) mg/dL Microbiology - Last 24 Hours (Table) 07/01/16 11:40 Gram Stain - Preliminary Sputum Sputum Culture - Preliminary
[2016-07-02] MEDS: MONTELUKAST 10 MG TAB PO SCH (21:43)
[2016-07-02 22:24] LABS: Glucose,Whole Blood 131 mg/dL (75-99)
[2016-07-03] MEDS: guaiFENesin-DM 600/30MG 1 EACH TAB.ER.12H PO PRN (01:43)
[2016-07-03] MEDS: IPRATROPIUM-ALBUTEROL 3 ML NEB INHALATION PRN (05:25)
[2016-07-03 07:49] LABS: Glucose,Whole Blood 88 mg/dL (75-99)
[2016-07-03 07:59] LABS: Basophils % (A) 0 %; CH 32.1; CHCM 33.5; Eosinophils % (A) 0 %; HCT 46.5 % (39.0-53.0); HDW 2.25; HGB 15.2 gm/dL (13.0-17.5); Luc # (Auto) 0.18; Luc % (Auto) 2; Lymphocytes % (A) 21 %; MCH 31.6 pg (25.0-35.0); MCHC 32.7 g/dL (31.0-37.0); MCV 96.5 fL (80.0-100.0); Monocytes # (A) 0.7 k/uL (0-1.0); Monocytes % (A) 7 %; Neutrophils # (A) 6.7 k/uL (1.3-7.7); Neutrophils % (A) 70 %; RBC 4.82 m/uL (4.30-5.90); RDW 12.6 % (11.5-15.5); WBC 9.6 k/uL (3.8-10.6); WBC (Perox) 9.92
[2016-07-03] MEDS ORDERED: methylPREDNISolone SOD SUCCI 40 MG/ML 1 ML VIAL IV SCH (09:00)
--- NOTE | 2016-07-03 09:26 | P.PN ---
Subjective This is dictation on progress note patient seen today and examined discussed with the patient in detail the plan. This is [facility] Patient seen significantly improved he had some secretion unable to get it out and we order physical therapy of the chest as well as requesting the chest percussion from the respiratory therapist. Patient now breathing better feeling better able to eat still he had some coughing and we added Mucinex DM. The IV fluid changed to Hep-Lock and the steroid changing to orally for preparation for discharge tomorrow if he did well. [id number] examination: Patient is much happier able to [place] conscious alert oriented, blood pressure was well-controlled and mild increased blood sugar secondary to steroids however stable this morning 88. No evidence of hypertension it well-controlled at this point with the current medication. HEENT head was normocephalic and atraumatic pupils equal reactive oropharynx was negative neck was supple chest was clear to auscultation and percussion with the occasional rhonchi's minimal wheezes significant improvement. He has only the cough that could not come out with the coughing has execration in the bronchial tree and as mentioned above we will be trying to do chest percussion as well Heart was regular sinus rhythm the abdomen is soft positive bowel sounds extremities no edema. And patient has 2 bowel movement. Assessment: Acute exacerbation of COPD with advanced stage., History of asthma added to his problem. Plan adjust medication sweep and changing to oral and ambulate as tolerated and with the plan for discharge if he continued to be stable and 24 hour period discussed with the patient in detail and he is in agreeable with the plan. Objective - Vital Signs Vital signs: Vital Signs Temp 98.7 F 07/03/16 07:00 Pulse 100 07/03/16 07:00 Resp 19 07/03/16 07:00 BP 108/72 07/03/16 07:00 Pulse Ox 92 L 07/03/16 07:00 Intake & Output 07/02/16 07/03/16 07/03/16 18:59 06:59 18:59 Intake Total 500 Balance 500 Intake: Oral 500 Other: Voiding Method Urinal # Voids 3 2 - Labs CBC & Chem 7: 07/03/16 07:28 07/01/16 08:44 Labs: Abnormal Lab Results - Last 24 Hours (Table) 07/02/16 07/02/16 Range/Units 12:23 22:10 POC Glucose (mg/dL) 119 H 131 H (75-99) mg/dL Microbiology - Last 24 Hours (Table) 07/01/16 11:40 Gram Stain - Final Sputum Sputum Culture - Final
[2016-07-03] MEDS: BUDESONIDE 0.5 MG/2 ML NEBU INHALATION SCH ×2 (09:30→19:25)
[2016-07-03] MEDS: IPRATROPIUM-ALBUTEROL 3 ML NEB INHALATION SCH ×4 (09:30→19:27)
[2016-07-03] MEDS: DILTIAZEM ORAL 30 MG TAB PO SCH ×3 (09:38→21:15)
[2016-07-03] MEDS: PHENYTOIN SODIUM EXTENDED 100 MG CAP PO SCH ×2 (09:38→21:15)
[2016-07-03] MEDS: FAMOTIDINE 20 MG TAB PO SCH (09:38)
[2016-07-03] MEDS: FINASTERIDE 5 MG TAB PO SCH (09:38)
[2016-07-03] MEDS: ENOXAPARIN 40 MG/0.4 ML SYRINGE SQ SCH (09:38)
[2016-07-03 12:15] LABS: Glucose,Whole Blood 103 mg/dL (75-99)
--- NOTE | 2016-07-03 16:28 | PN ---
Patient was seen on 07/03/2016 He is almost back to his baseline as far as shortness of breath goes. On physical examination, his respiratory rate is 19, pulse 100, temperature 98.7, blood pressure 108/72, O2 sats on 2 L by nasal cannula is 92%. HEENT is unremarkable. Chest reveals expiratory wheeze. Cardiovascular system reveals S1 and S2. Abdomen is soft. There is no edema. IMPRESSION: 1. Severe asthma with severe chronic obstructive pulmonary disease with acute exacerbation. 2. CT of the chest shows no evidence of lung nodule. Labs were reviewed. Continue Medrol, bronchodilators, aerosolized steroids and montelukast. Continue Levaquin. Increase his activity level.
[2016-07-03] MEDS: LEVOFLOXACIN 500 MG TAB PO SCH (16:59)
[2016-07-03] MEDS ORDERED: methylPREDNISolone 4 MG TAB PO SCH (21:00)
[2016-07-03] MEDS: MONTELUKAST 10 MG TAB PO SCH (21:15)
[2016-07-03] MEDS: methylPREDNISolone 4 MG TAB PO SCH (21:15)
[2016-07-04] MEDS: IPRATROPIUM-ALBUTEROL 3 ML NEB INHALATION PRN ×2 (01:09→05:00)
[2016-07-04 08:11] LABS: Basophils % (A) 0 %; CH 32.2; CHCM 33.3; Eosinophils # (A) 0.1 k/uL (0-0.7); Eosinophils % (A) 1 %; HCT 45.5 % (39.0-53.0); HDW 2.14; HGB 14.9 gm/dL (13.0-17.5); Luc # (Auto) 0.14; Luc % (Auto) 2; Lymphocytes # (A) 0.9 k/uL (1.0-4.8); Lymphocytes % (A) 14 %; MCH 31.8 pg (25.0-35.0); MCHC 32.7 g/dL (31.0-37.0); MCV 97.1 fL (80.0-100.0); Mean Platelet Volume 6.5; Monocytes # (A) 0.7 k/uL (0-1.0); Monocytes % (A) 11 %; Neutrophils % (A) 73 %; RBC 4.68 m/uL (4.30-5.90); RDW 12.5 % (11.5-15.5); WBC 6.9 k/uL (3.8-10.6); WBC (Perox) 6.83
[2016-07-04] MEDS: IPRATROPIUM-ALBUTEROL 3 ML NEB INHALATION SCH ×4 (08:23→19:25)
[2016-07-04] MEDS: BUDESONIDE 0.5 MG/2 ML NEBU INHALATION SCH ×2 (08:24→19:25)
[2016-07-04] MEDS: FAMOTIDINE 20 MG TAB PO SCH (09:53)
[2016-07-04] MEDS: FINASTERIDE 5 MG TAB PO SCH (09:54)
[2016-07-04] MEDS: ENOXAPARIN 40 MG/0.4 ML SYRINGE SQ SCH (09:54)
[2016-07-04] MEDS: FLUCONAZOLE 100 MG TAB PO SCH (09:54)
[2016-07-04] MEDS: PHENYTOIN SODIUM EXTENDED 100 MG CAP PO SCH ×2 (09:54→20:23)
[2016-07-04] MEDS: DILTIAZEM ORAL 30 MG TAB PO SCH ×3 (09:54→21:30)
[2016-07-04] MEDS: guaiFENesin-DM 600/30MG 1 EACH TAB.ER.12H PO PRN (10:22)
[2016-07-04] MEDS: methylPREDNISolone 4 MG TAB PO SCH ×2 (10:22→20:23)
--- NOTE | 2016-07-04 13:32 | PN ---
DATE OF SERVICE: 07/04/2016. He has remained hemodynamically stable. He however, has had worsening cough and shortness of breath. On physical examination, his heart rate is 104, O2 sat on room air is 92%, blood pressure 167/65, temperature 97.8. HEENT: Unremarkable. Chest reveals prolonged expiration with faint expiratory wheeze. Cardiovascular S1 and S2. ABDOMEN: Soft. There is no pedal edema. IMPRESSION: 1. Asthma with severe chronic obstructive pulmonary disease with acute exacerbation. 2. Acute respiratory failure. 3. Worsening respiratory status, etiology which is unclear. Would watch for a fever pattern to make sure he is not developing a viral or bacterial illness. Would give him two extra doses of Solu-Medrol today. Increase his activity level. Continue him on his current medications. If he is otherwise doing better, we may be able to consider discharge planning tomorrow. If he is worse, we would need to look into further etiology of his worsening.
[2016-07-04] MEDS: guaiFENesin-Coden 100-10MG/5ML 10 ML CUP PO PRN (13:51)
[2016-07-04] MEDS: FLUTICASONE 50MCG/SPRAY NASAL 16GM EA NOSTRIL PRN (13:51)
[2016-07-04] MEDS: methylPREDNISolone SOD SUCCI 125 MG/2 ML VIAL IV SCH ×2 (13:51→18:20)
[2016-07-04] MEDS: LEVOFLOXACIN 500 MG TAB PO SCH (17:18)
--- NOTE | 2016-07-04 17:57 | PN ---
DATE OF SERVICE: 07/04/2016 He is a 66-year-old white male. Currently patient is seen, evaluated and discussed with the patient the current plan. The patient was seen today by Dr. Sandoval Miguel and his impressions are: 1) Asthma with severe chronic obstructive lung disease with acute exacerbation, 2) He had acute respiratory failure, and 3) Worsening respiratory status, etiology is unclear. The patient yesterday we did switch him to oral Medrol 60 mg b.i.d. however, patient started exacerbating and for that purpose Dr. Sandoval Miguel changed him back today to Solu-Medrol. As well as patient received cough syrup with codeine and expectorant to facilitate expectoration as well as he had nasal spray for congestion of the nose. Otherwise, the patient is currently on Levaquin 500 mg as well and they started him on fluticasone nasal spray. Meanwhile, he has vital signs today as discussed with him. His temperature 97.8. His heart rate still fluctuating and when he has exertion it goes to 112. His respiratory rate 22, blood pressure is stable and no evidence of hypertension 137/77 and his pulse ox 91%. Laboratory indicating today that his white count is 6.9 with hemoglobin 14.9 and hematocrit 44.5, which is stable general condition. The blood sugar was 103 to 88. PHYSICAL EXAMINATION: GENERAL APPEARANCE: The patient is conscious, alert. He has no acute respiratory distress at the time of the exam. He was coughing and coughing is bothering him much. HEENT was negative. Oropharynx was normal, natural teeth. The neck was supple. No JVD. CHEST: Presence of increased anteroposterior diameter. He had expiratory and inspiratory wheezes; however, there is much improvement, still cough is present at this time and the patient is back on the steroids IV by Dr. Sandoval Miguel, the pulmonary. His heart was regular sinus rhythm, except occasional atrial tachycardia secondary to pulmonary disease. The abdomen is soft, positive bowel sounds. EXTREMITIES: No edema and positive pulses. ASSESSMENT: 1. As mentioned before acute exacerbation of chronic obstructive pulmonary disease and underlying failure of treatment as outpatient. 2. Asthma. 3. Acute respiratory failure and worsening respiratory status. PLAN: We will continue the current treatment, add the IV steroids ordered by Dr. Sandoval Miguel and will see tomorrow how patient is improving as well as added the Robitussin with codeine as well as nasal spray.
[2016-07-04] MEDS: MONTELUKAST 10 MG TAB PO SCH (20:23)
[2016-07-05] MEDS: IPRATROPIUM-ALBUTEROL 3 ML NEB INHALATION PRN ×2 (03:31→23:04)
[2016-07-05] MEDS: BUDESONIDE 0.5 MG/2 ML NEBU INHALATION SCH ×2 (07:48→19:56)
[2016-07-05] MEDS: IPRATROPIUM-ALBUTEROL 3 ML NEB INHALATION SCH ×4 (07:48→19:56)
[2016-07-05] MEDS: FAMOTIDINE 20 MG TAB PO SCH (09:02)
[2016-07-05] MEDS: PHENYTOIN SODIUM EXTENDED 100 MG CAP PO SCH ×2 (09:02→21:24)
[2016-07-05] MEDS: ENOXAPARIN 40 MG/0.4 ML SYRINGE SQ SCH (09:02)
[2016-07-05] MEDS: FLUCONAZOLE 100 MG TAB PO SCH (09:03)
[2016-07-05] MEDS: DILTIAZEM ORAL 30 MG TAB PO SCH ×3 (09:03→21:24)
[2016-07-05] MEDS: FINASTERIDE 5 MG TAB PO SCH (09:03)
[2016-07-05] MEDS: FLUTICASONE 50MCG/SPRAY NASAL 16GM EA NOSTRIL PRN (09:04)
[2016-07-05] MEDS: guaiFENesin-Coden 100-10MG/5ML 10 ML CUP PO PRN ×2 (09:07→21:27)
[2016-07-05] MEDS: methylPREDNISolone 4 MG TAB PO SCH ×2 (09:53→21:24)
[2016-07-05 11:10] LABS: Basophils % (A) 0 %; CHCM 32.7; Eosinophils % (A) 0 %; HCT 47.8 % (39.0-53.0); HDW 2.15; HGB 15.3 gm/dL (13.0-17.5); Luc # (Auto) 0.15; Luc % (Auto) 2; Lymphocytes # (A) 0.8 k/uL (1.0-4.8); Lymphocytes % (A) 11 %; MCH 31.4 pg (25.0-35.0); MCV 98.3 fL (80.0-100.0); Mean Platelet Volume 6.4; Monocytes # (A) 0.6 k/uL (0-1.0); Monocytes % (A) 8 %; Neutrophils # (A) 5.7 k/uL (1.3-7.7); Neutrophils % (A) 79 %; RBC 4.87 m/uL (4.30-5.90); RDW 12.6 % (11.5-15.5); WBC 7.3 k/uL (3.8-10.6); WBC (Perox) 7.48
[2016-07-05 11:27] LABS: Anion Gap 9 mmol/L; Blood Urea Nitrogen 22 mg/dL (9-20); Calcium 9.4 mg/dL (8.4-10.2); Carbon Dioxide 31 mmol/L (22-30); Chloride 101 mmol/L (98-107); Glucose 99 mg/dL (74-99); Magnesium 2.1 mg/dL (1.6-2.3); Non-African American GFR(MDRD) >60 (>60 ml/min/1.73 sqM); Potassium 4.8 mmol/L (3.5-5.1); Sodium 141 mmol/L (137-145)
--- NOTE | 2016-07-05 13:28 | P.PN ---
Subjective Principal diagnosis: Acute exacerbation of COPD seen and examined. Patient is complaining of shortness of breath with exertion. He states he gets very anxious when this happens. He is wondering if there is anything that can be done for and only his anxiety but to help his shortness of breath with exertion. The patient was previously in pulmonary rehab and completed the program. He is willing to restart the pulmonary rehab program. Objective - Vital Signs Vital signs: Vital Signs Temp 97.3 F L 07/05/16 07:00 Pulse 109 H 07/05/16 11:52 Resp 16 07/05/16 11:52 BP 123/72 07/05/16 07:00 Pulse Ox 91 L 07/05/16 07:00 Intake & Output 07/04/16 07/05/16 07/05/16 18:59 06:59 18:59 Intake Total 300 Balance 300 Intake: Oral 300 Other: Voiding Method Urinal Urinal # Voids 4 1 - Exam Gen.: Patient is alert and oriented 3, no acute distress, ambulating in room Cardiovascular: Regular rate and rhythm, S1/S2 Lungs: Diminished breath sounds bilaterally with end expiratory wheezing and prolonged expiratory phase Extremities: No edema Abdomen: Soft nontender nondistended positive bowel sounds - Labs CBC & Chem 7: 07/05/16 10:51 07/05/16 10:51 Labs: Abnormal Lab Results - Last 24 Hours (Table) 07/05/16 07/05/16 Range/Units 10:51 10:51 Lymphocytes # 0.8 L (1.0-4.8) k/uL Carbon Dioxide 31 H (22-30) mmol/L BUN 22 H (9-20) mg/dL Assessment and Plan Plan: Acute exacerbation of COPD and asthma, severe persistent, ALLERGIC Tracheobronchitis Bronchospasm History of tobacco abuse Dyspnea on exertion Hypertension Questionable right middle lobe nodule on chest x-ray O2 to maintain saturation greater than equal to 88% Bronchodilators and Pulmicort Singulair Levaquin PO Patient receive Xolair as an outpatient Incentive spirometry and pulmonary hygiene Continued smoking cessation Restart pulmonary rehab as an outpatient Will try patient on Theophylline Will try Xanax for anxiety Would continue patient on Prednisone outpatient 10 mg daily indefinitely until re-evaluated by pulmonary team
[2016-07-05] MEDS: THEOPHYLLINE 24 HOUR 200 MG CAP.ER.24H PO SCH (14:30)
[2016-07-05] MEDS: ALPRAZolam 0.5 MG TAB PO PRN ×2 (14:35→23:48)
[2016-07-05] MEDS: LEVOFLOXACIN 500 MG TAB PO SCH (16:17)
[2016-07-05] MEDS: FORMOTEROL FUMARATE 20 MCG/2 ML NEBU INHALATION SCH (19:56)
[2016-07-05] MEDS: MONTELUKAST 10 MG TAB PO SCH (21:24)
--- NOTE | 2016-07-05 22:29 | PN ---
DATE OF SERVICE: 07/05/2016 Age: 66 years. Data: Height is 5 feet 10 inches. Weight 74.8 kg. BSA body surface area 1.92 with square meters. Body mass index 23.7 kg/square meter. ALLERGIES: UNKNOWN. Patient is seen today, evaluated. Discussed with him. He was seen by Pulmonary, Dr. Flores, and he was started today on Xanax as well as theophylline by Dr. Flores, the pulmonary physician. LABS FROM TODAY: WBC 7.3, hemoglobin 15.3, hematocrit 47.8 with platelet count 192. Chemistry showed sodium 141, potassium 4.8, carbon dioxide 31 with anion gap of 9. His BUN is 22 and creatinine 0.8. His estimated glomerular filtration rate for non- more than 60. Glucose was 99 this morning. He has been stable with the blood sugar. His calcium is 9.4 and magnesium also normal at 2.1. He had a CT scan done on July 01. The CT scan showed diffuse pulmonary emphysema and no evidence of mass or pleural effusion and no pericardial effusion and no evidence of thoracic aneurysm or dissection. He had emphysema and atherosclerotic changes of the vascular disease. No evidence of embolism. On the current visit, I discussed with him the future plan. VITAL SIGNS: Temperature 97.4. His pulse rate with his severe advanced COPD and asthma has been between 109 and 119. His blood pressure was 97/74 with a mean pressure of 81. Respiratory rate was 16 and he is on oxygen at 2 L. GENERAL APPEARANCE: Patient is conscious, alert; however, he still has severe inspiratory and expiratory wheezes and he is still has emphysematous lungs. HEENT: Negative. Oropharynx normal. No yeast. NECK: Supple. No JVD. No thyroid enlargement. CHEST: Aerated with rhonchi and wheezes, inspiratory and expiratory. No dullness on percussion. ABDOMEN: Soft. Positive bowel sounds. EXTREMITIES: No edema. NEUROLOGICAL EXAMINATION: Grossly intact. Ambulatory to the bathroom. Beyond that he is out of breath. ASSESSMENT: Patient was seen by the pulmonary physician, Dr. Flores. He was started on theophylline as well as Xanax with the underlying anxiety, with advanced chronic obstructive pulmonary disease as well as asthma and emphysema. PLAN: We will ambulate and recheck oxygen to see if he needs any home oxygen as well, with the need for arrangement of home oxygen as well as planning for discharge in 24 hours if he improves with the theophylline as well as Xanax.
[2016-07-06] MEDS: IPRATROPIUM-ALBUTEROL 3 ML NEB INHALATION PRN (03:38)
[2016-07-06] MEDS: IPRATROPIUM-ALBUTEROL 3 ML NEB INHALATION SCH ×2 (07:21→10:56)
[2016-07-06] MEDS: FORMOTEROL FUMARATE 20 MCG/2 ML NEBU INHALATION SCH (07:21)
[2016-07-06] MEDS: BUDESONIDE 0.5 MG/2 ML NEBU INHALATION SCH (07:21)
[2016-07-06 07:43] VITALS: BP 110/75; RESP 18; TEMP 97.9
[2016-07-06] MEDS: ENOXAPARIN 40 MG/0.4 ML SYRINGE SQ SCH (08:31)
[2016-07-06] MEDS: THEOPHYLLINE 24 HOUR 200 MG CAP.ER.24H PO SCH (08:31)
[2016-07-06] MEDS: FAMOTIDINE 20 MG TAB PO SCH (08:31)
[2016-07-06] MEDS: DILTIAZEM ORAL 30 MG TAB PO SCH (08:31)
[2016-07-06] MEDS: methylPREDNISolone 4 MG TAB PO SCH (08:32)
[2016-07-06] MEDS: PHENYTOIN SODIUM EXTENDED 100 MG CAP PO SCH (08:32)
[2016-07-06] MEDS: FINASTERIDE 5 MG TAB PO SCH (08:32)
[2016-07-06] MEDS: FLUCONAZOLE 100 MG TAB PO SCH (08:33)
--- NOTE | 2016-07-06 08:42 | PN ---
DATE OF SERVICE: 07/06/2016 He is almost back to his baseline as far as shortness of breath goes. On physical examination, his blood pressure is 110/75, respiratory rate of 18, pulse rate of 112, temperature 97.9. O2 sat on 2 L by nasal cannula is 92%. HEENT reveals pupils that are equal. Chest reveals wheeze only on forced expiration. Cardiovascular system reveals an S1, S2. Abdomen is soft. There is no edema. White count is 7.3, hemoglobin of 15.3. Sodium 141, potassium 4.8, chloride 101, bicarb 31, BUN 22, creatinine 0.8. IMPRESSION: 1. Severe chronic obstructive pulmonary disease. 2. Severe persistent asthma. 3. Acute respiratory failure secondary to severe asthma with chronic obstructive pulmonary disease with acute exacerbation. 4. Anxiety. At this point in time, continue him on his current medications. Increase his activity level. Agree with high-dose steroids. Discharge planning would be appropriate. At this time, we would follow him closely as an outpatient. He does have an appointment within the next few days to see us. Would recommend pulmonary rehab as an outpatient as well as he understands the benefits of that.
[2016-07-06] MEDS: guaiFENesin-Coden 100-10MG/5ML 10 ML CUP PO PRN (09:16)
[2016-07-06] MEDS: ALPRAZolam 0.5 MG TAB PO PRN (09:16)
[2016-07-06 11:12] VITALS: PULSE 100
--- NOTE | 2016-07-06 13:20 | DS ---
DATE OF ADMISSION: 06/30/2016 DATE OF DISCHARGE: 07/06/2016 Patient is 66, male, , . NEW DATA: His height 5 feet 10 inches, weight 74.84 kg, BSA 1.92 sq m. BMI 23.7. No known allergy. Patient is seen today and discussed with him the current plan and discharge as well with the final diagnoses: 1. Acute severe chronic obstructive pulmonary disease. 2. Severe persistent asthma. 3. Respiratory failure secondary to severe asthma with chronic obstructive lung disease with the acute exacerbation. 4. Anxiety. 5. Hypertension, on admission, controlled on discharge. 6. Bronchitis, acute on top of chronic. HOSPITAL COURSE: Patient admitted to the hospital with the high blood pressure as well as wheezing. Could not breathe with using extra respiratory muscle and intercostalis as well and the nasal ala as well as severe expiratory and inspiratory. He had no repeated chest x-ray with no evidence of pneumonia. Several treatment has been done added to the pulmonary consultation and steroid treatment. He was on Xolair injection by Dr. Valdez Miguel as outpatient and that will be continued by outpatient, not given during his hospitalization. The patient is in stable general condition. Will be discharged home today in stable condition. Will be followed up with Dr. Rose as well as a followed up with Dr. Valdez Miguel next week. On the examination, face to face on discharge and reviewing the laboratory, his white count 7.3 and hemoglobin is 15.3 and hematocrit 47.8 and platelet count 192. His electrolytes are within normal limits with the BUN of 22, creatinine 0.8 and blood sugar 99, magnesium 2.1. His vital signs indicating a temperature of 97.9 and heart rate was stable with 96 to 100 and occasionally he has tachycardia, but controlled well with the treatment. His respiratory rate 16 to 18 per minute. His blood pressure 110/75 with a mean 86. His pulse ox 91. In the clinical examination, patient is conscious, alert, oriented x3, ambulatory. He has oropharynx, no thrush and no mirela. Neck was supple. No lymphadenopathy. The chest, there is scattered wheezes bilateral which is his baseline and no acute distress at the time of discharge. The heart was regular sinus rhythm and the abdomen was soft with positive bowel sounds. Extremities, no edema and positive pulses. Neurologically stable and patient will be stable currently for discharge home to follow up with Dr. Rose as well as Dr. Valdez Miguel. Dr. Valdez Miguel saw him today on 06 of July and cleared him for discharge as well. VIOLETTA
== END 2016-07-06 13:03 | disposition home or self-care (01) | DRG 190 ==
LOC: EC 12:47 → 4MS4W 15:56
PROVIDERS: ADMIT Internal Medicine; ATTEND Internal Medicine
DX: J44.0 Chronic obstructive pulmonary disease with (acute) lower respiratory infection (principal); J96.20 Acute and chronic respiratory failure, unspecified whether with hypoxia or hypercapnia; Z99.81 Dependence on supplemental oxygen; J45.51 Severe persistent asthma with (acute) exacerbation; I11.9 Hypertensive heart disease without heart failure; I47.1 Supraventricular tachycardia; K59.00 Constipation, unspecified; J44.1 Chronic obstructive pulmonary disease with (acute) exacerbation; J20.9 Acute bronchitis, unspecified; R73.9 Hyperglycemia, unspecified; F41.0 Panic disorder [episodic paroxysmal anxiety]; T38.0X5A Adverse effect of glucocorticoids and synthetic analogues, initial encounter; T46.4X5A Adverse effect of angiotensin-converting-enzyme inhibitors, initial encounter; G40.909 Epilepsy, unspecified, not intractable, without status epilepticus; M19.90 Unspecified osteoarthritis, unspecified site; R26.2 Difficulty in walking, not elsewhere classified; R60.0 Localized edema; F41.9 Anxiety disorder, unspecified; I49.3 Ventricular premature depolarization; R91.8 Other nonspecific abnormal finding of lung field; I25.10 Atherosclerotic heart disease of native coronary artery without angina pectoris; N40.0 Benign prostatic hyperplasia without lower urinary tract symptoms; R14.0 Abdominal distension (gaseous); R53.1 Weakness; Z82.3 Family history of stroke; Z87.19 Personal history of other diseases of the digestive system; Z86.19 Personal history of other infectious and parasitic diseases; Z87.09 Personal history of other diseases of the respiratory system; Z82.49 Family history of ischemic heart disease and other diseases of the circulatory system; Z87.891 Personal history of nicotine dependence; Z96.651 Presence of right artificial knee joint; Z90.49 Acquired absence of other specified parts of digestive tract; Z79.2 Long term (current) use of antibiotics; Z79.51 Long term (current) use of inhaled steroids; Z79.52 Long term (current) use of systemic steroids; Z79.1 Long term (current) use of non-steroidal anti-inflammatories (NSAID)
CPT/HCPCS: 36415; 71020; 71260; 80048; 80053; 80061; 80185; 80186; 82550; 82553; 83605; 83735; 83880; 84484; 85025; 85379; 85610; 85730; 87070; 87205; 87502; 93005; 93306; 94640; 94667; 94668; 94760; 96365; 96375; 99285

== ENCOUNTER 2016-07-09 17:45 | Inpatient (IN) | payer MEDICARE ==
[2016-07-09] MEDS ORDERED: ALBUTEROL NEBULIZED 15 MG, IPRATROPIUM NEBULIZED 0.5 MG INHALATION ONE ×2 (17:57)
[2016-07-09] MEDS ORDERED: LORazepam 2 MG/ML SYRINGE IV STA (17:58)
--- NOTE | 2016-07-09 18:16 | ED ---
General Adult HPI - General Source: EMS, RN notes reviewed Mode of arrival: EMS Limitations: no limitations <Raimundo Brown - Last Filed: 07/09/16 18:52> <Clarence Funes - Last Filed: 07/09/16 21:18> - General Chief complaint: Shortness of Breath Stated complaint: Diff breathing Time Seen by Provider: 07/09/16 17:45 - History of Present Illness Initial comments: This is a 66-year-old male presents emergency room with a past medical history of COPD. Patient states he's been home from the hospital about a week and his breathing is been pretty good up until yesterday. Patient states today he got severe she called EMS. EMS stated when he arrived he was pulse oxing in the 70s. According to EMS he could not hear any air movement all. I gave the patient Solu-Medrol breathing treatments but did not do BiPAP because the patient has a lot of anxiety. His any chest pain or palpitations. Patient denies abdominal pain patient denies nausea vomiting or diarrhea per patient states she has edema to his legs but it's chronic and there is no new edema. Patient denies headache patient denies numbness weakness. (Raimundo Brown) - Related Data Home Medications Medication Instructions Recorded Confirmed Albuterol Inhaler [Ventolin Hfa 2 puff INHALATION RT-QID PRN 06/30/16 07/09/16 Inhaler] Albuterol Nebulized [Ventolin 2.5 mg INHALATION RT-QID 06/30/16 07/09/16 Nebulized] Budesonide/Formoterol Fumarate 2 puff INHALATION RT-BID 06/30/16 07/09/16 [Symbicort 160-4.5 Mcg Inhaler] Furosemide [Lasix] 20 mg PO DAILY PRN 07/01/16 07/09/16 LORazepam [Ativan] 1 mg PO BID PRN 07/01/16 07/09/16 Phenytoin Sodium Extended 200 mg PO BID 07/01/16 07/09/16 [Dilantin] Levofloxacin [Levaquin] 500 mg PO DAILY 07/09/16 07/09/16 Previous Rx's Medication Instructions Recorded Finasteride [Proscar] 5 mg PO DAILY tab 02/16/16 Montelukast [Singulair] 10 mg PO HS tab 02/16/16 Diltiazem Oral [Cardizem*] 30 mg PO TID #90 tab 07/06/16 Fluticasone Nasal Dresser [Flonase 2 spray EA NOSTRIL DAILY PRN #1 spr 07/06/16 Nasal Dresser] Theophylline 24 Hour [Víctor-24] 200 mg PO DAILY #30 cap.er.24h 07/06/16 methylPREDNISolone [Medrol] 16 mg PO BID #7 tab 07/06/16 Allergies Allergy/AdvReac Type Severity Reaction Status Date / Time No Known Allergies Allergy Verified 07/09/16 18:25 Review of Systems ROS Other: All systems not noted in ROS Statement are negative. <Raimundo Brown - Last Filed: 07/09/16 18:52> ROS Other: All systems not noted in ROS Statement are negative. <Clarence Funes - Last Filed: 07/09/16 21:18> ROS Statement: Those systems with pertinent positive or pertinent negative responses have been documented in the HPI. Past Medical History Past Medical History: Asthma, COPD, Hypertension, Osteoarthritis (OA), Prostate Disorder, Seizure Disorder Additional Past Medical History / Comment(s): epilepsy- last seizure?1970-takes dilantin, bronchitis, DIVERTICULITIS(HAD RESECTION), home 02 3 liters as needed , enlarged prostate, had pnuemovax vaccine 2012, and prevnar 13 UTD ON FLU VACCINE. History of Any Multi-Drug Resistant Organisms: None Reported Past Surgical History: Bowel Resection, Joint Replacement Additional Past Surgical History / Comment(s): rt knee replacement,HAD BOWEL RESECTION D/T DIVERTICULITIS Past Anesthesia/Blood Transfusion Reactions: No Reported Reaction Past Psychological History: No Psychological Hx Reported Additional Psychological History / Comment(s): PT LIVES AT HOME WITH HIS . 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 PT STATED GETS PANIC ATTACKS WHEN HAVING DIFFICULTY BREATHING Smoking Status: Former smoker Past Alcohol Use History: None Reported Additional Past Alcohol Use History / Comment(s): STARTED SMOKING AT AGE 19 quit -2014 Past Drug Use History: None Reported - Past Family History Father Family Medical History: CVA/TIA, Myocardial Infarction ([place]) Additional Family Medical History / Comment(s): IN 2005 AT AGE 87 Mother Family Medical History: Myocardial Infarction ([place]) Additional Family Medical History / Comment(s): AT AGE 68 FROM [place] <Alan Brownophe - Last Filed: 07/09/16 18:52> General Exam Limitations: no limitations <Raimundo Brown - Last Filed: 07/09/16 18:52> <MarinClarence - Last Filed: 07/09/16 21:18> - General Exam Comments Initial Comments: GENERAL: Patient is well-developed and well-nourished. Patient is nontoxic and well- hydrated and is in mild distress. ENT: Neck is soft and supple. No significant lymphadenopathy is noted. Oropharynx is clear. Moist mucous membranes. Neck has full range of motion without eliciting any pain. EYES: The sclera were anicteric and conjunctiva were pink and moist. Extraocular movements were intact and pupils were equal round and reactive to light. Eyelids were unremarkable. PULMONARY: Patient has very little air movement. CARDIOVASCULAR: Patient is tachycardic at 120 beats a minute ABDOMEN: Soft and nontender with normal bowel sounds. No palpable organomegaly was noted. There is no palpable pulsatile mass. SKIN: Skin is clear with no lesions or rashes and otherwise unremarkable. NEUROLOGIC: Patient is alert and oriented x3. Cranial nerves II through XII are grossly intact. Motor and sensory are also intact. Normal speech, volume and content. Symmetrical smile. MUSCULOSKELETAL: Normal extremities with adequate strength and full range of motion. 1+ edema bilaterally LYMPHATICS: No significant lymphadenopathy is noted PSYCHIATRIC: Normal psychiatric evaluation. Normal interpersonal interactions appears functionally intact in deals appropriately with others. No signs of depression. No signs of anxiety. (Raimundo Brown) Course <Raimundo Brown - Last Filed: 07/09/16 18:52> <Clarence Funes - Last Filed: 07/09/16 21:18> Vital Signs 07/09/16 07/09/16 07/09/16 17:46 17:57 18:15 Temperature 97.8 F Pulse Rate 126 H 122 H 128 H Respiratory 25 H 20 Rate Blood Pressure 147/96 147/96 O2 Sat by Pulse 97 Oximetry 07/09/16 07/09/16 07/09/16 18:31 19:03 19:22 Temperature Pulse Rate 120 H 124 H 126 H Respiratory Rate Blood Pressure O2 Sat by Pulse Oximetry 07/09/16 07/09/16 20:00 21:00 Temperature 98.4 F Pulse Rate 113 H 110 H Respiratory 26 H 24 Rate Blood Pressure 148/68 153/74 O2 Sat by Pulse 98 89 L Oximetry - Reevaluation(s) Reevaluation #1: 07/09/16 21:18 The patient was endorsed to me by Dr. Brown at our shift change. The patient is still not improving much. He will require inpatient treatment he does see S /P bertha from pulmonology. I will discuss the case with Dr. Guerrier who is covering for Dr. Rose (Clarence Funes) Medical Decision Making - Lab Data Result diagrams: 07/09/16 18:10 <Raimundo Brown - Last Filed: 07/09/16 18:52> - Lab Data Result diagrams: 07/09/16 18:10 07/09/16 19:10 <Clarence Funes - Last Filed: 07/09/16 21:18> - Medical Decision Making EKG shows sinus tachycardia with an occasional PVC at 123 bpm UT interval is 146 QRS is 86 QT interval 304 QTC is 435. Patient's EKG shows no ST segment elevation or depression. I compared the old EKG with this EKG there are no acute changes noted. Dr. Funes will be taking over the care of this patient at 7 PM (Raimundo Brown) - Lab Data Lab Results 07/09/16 07/09/16 07/09/16 Range/Units 18:10 18:10 19:10 WBC 4.8 (3.8-10.6) k/uL RBC 5.23 (4.30-5.90) m/uL Hgb 16.5 (13.0-17.5) gm/dL Hct 49.7 (39.0-53.0) % MCV 95.0 (80.0-100.0) fL MCH 31.6 (25.0-35.0) pg MCHC 33.2 (31.0-37.0) g/dL RDW 12.7 (11.5-15.5) % Plt Count 215 (150-450) k/uL Neutrophils % 52 % Lymphocytes % 33 % Monocytes % 11 % Eosinophils % 0 % Basophils % 1 % Neutrophils # 2.5 (1.3-7.7) k/uL Lymphocytes # 1.6 (1.0-4.8) k/uL Monocytes # 0.5 (0-1.0) k/uL Eosinophils # 0.0 (0-0.7) k/uL Basophils # 0.0 (0-0.2) k/uL PT 11.3 (9.0-12.0) sec INR 1.1 (<1.1) APTT 22.0 (22.0-30.0) sec Sodium 137 (137-145) mmol/L Potassium 5.0 (3.5-5.1) mmol/L Chloride 98 (98-107) mmol/L Carbon Dioxide 27 (22-30) mmol/L Anion Gap 12 mmol/L BUN 15 (9-20) mg/dL Creatinine 0.64 L (0.66-1.25) mg/dL Est GFR (MDRD) Af Amer >60 (>60 ml/min/1.73 sqM) Est GFR (MDRD) Non-Af >60 (>60 ml/min/1.73 sqM) Glucose 145 H (74-99) mg/dL Calcium 9.8 (8.4-10.2) mg/dL Total Bilirubin 0.6 (0.2-1.3) mg/dL AST 36 (17-59) U/L ALT 69 (21-72) U/L Alkaline Phosphatase 118 (38-126) U/L Total Creatine Kinase (55-170) U/L CK-MB (CK-2) (0.0-2.4) ng/mL CK-MB (CK-2) Rel Index Troponin I (0.000-0.034) ng/mL Total Protein 7.2 (6.3-8.2) g/dL Albumin 4.2 (3.5-5.0) g/dL 07/09/16 Range/Units 19:10 WBC (3.8-10.6) k/uL RBC (4.30-5.90) m/uL Hgb (13.0-17.5) gm/dL Hct (39.0-53.0) % MCV (80.0-100.0) fL MCH (25.0-35.0) pg MCHC (31.0-37.0) g/dL RDW (11.5-15.5) % Plt Count (150-450) k/uL Neutrophils % % Lymphocytes % % Monocytes % % Eosinophils % % Basophils % % Neutrophils # (1.3-7.7) k/uL Lymphocytes # (1.0-4.8) k/uL Monocytes # (0-1.0) k/uL Eosinophils # (0-0.7) k/uL Basophils # (0-0.2) k/uL PT (9.0-12.0) sec INR (<1.1) APTT (22.0-30.0) sec Sodium (137-145) mmol/L Potassium (3.5-5.1) mmol/L Chloride (98-107) mmol/L Carbon Dioxide (22-30) mmol/L Anion Gap mmol/L BUN (9-20) mg/dL Creatinine (0.66-1.25) mg/dL Est GFR (MDRD) Af Amer (>60 ml/min/1.73 sqM) Est GFR (MDRD) Non-Af (>60 ml/min/1.73 sqM) Glucose (74-99) mg/dL Calcium (8.4-10.2) mg/dL Total Bilirubin (0.2-1.3) mg/dL AST (17-59) U/L ALT (21-72) U/L Alkaline Phosphatase (38-126) U/L Total Creatine Kinase 66 (55-170) U/L CK-MB (CK-2) 3.5 H* (0.0-2.4) ng/mL CK-MB (CK-2) Rel Index 5.3 Troponin I <0.012 (0.000-0.034) ng/mL Total Protein (6.3-8.2) g/dL Albumin (3.5-5.0) g/dL Disposition <Raimundo Brown - Last Filed: 07/09/16 18:52> <Clarence Funes - Last Filed: 07/09/16 21:18> Clinical Impression: Acute exacerbation of chronic obstructive airways disease Disposition: ADMITTED IP TO THIS HOSP Condition: Stable
[2016-07-09 18:29] LABS: Basophils % (A) 1 %; CH 31.8; CHCM 33.7; Eosinophils % (A) 0 %; HCT 49.7 % (39.0-53.0); HDW 3.29; HGB 16.5 gm/dL (13.0-17.5); Luc # (Auto) 0.19; Luc % (Auto) 4; Lymphocytes # (A) 1.6 k/uL (1.0-4.8); Lymphocytes % (A) 33 %; MCH 31.6 pg (25.0-35.0); MCHC 33.2 g/dL (31.0-37.0); Mean Platelet Volume 8.8; Monocytes # (A) 0.5 k/uL (0-1.0); Monocytes % (A) 11 %; Neutrophils # (A) 2.5 k/uL (1.3-7.7); Neutrophils % (A) 52 %; RBC 5.23 m/uL (4.30-5.90); RDW 12.7 % (11.5-15.5); WBC 4.8 k/uL (3.8-10.6); WBC (Perox) 4.74
[2016-07-09 18:45] LABS: INR 1.1 (<1.1); Prothrombin Time 11.3 sec (9.0-12.0)
[2016-07-09 19:28] LABS: ALT 69 U/L (21-72); AST 36 U/L (17-59); Alkaline Phosphatase 118 U/L (38-126); Anion Gap 12 mmol/L; Blood Urea Nitrogen 15 mg/dL (9-20); Calcium 9.8 mg/dL (8.4-10.2); Carbon Dioxide 27 mmol/L (22-30); Chloride 98 mmol/L (98-107); Glucose 145 mg/dL (74-99); Non-African American GFR(MDRD) >60 (>60 ml/min/1.73 sqM); Sodium 137 mmol/L (137-145); Total Bilirubin 0.6 mg/dL (0.2-1.3); Total Protein 7.2 g/dL (6.3-8.2)
--- NOTE | 2016-07-09 19:43 | XR ---
EXAMINATION TYPE: XR chest 1V portable DATE OF EXAM: 07/09/2016 7:01 PM COMPARISON: 06/28/2016 HISTORY: Shortness of breath. History of COPD. TECHNIQUE: Single frontal view of the chest is obtained. FINDINGS: There is no focal air space opacity, pleural effusion, or pneumothorax seen. Findings aga in compatible with COPD are noted. This includes flattening of the diaphragms and pulmonary hyperinfl ation. The cardiac silhouette size is within normal limits. The osseous structures are intact. IMPRESSION: No acute process. Findings again compatible with COPD.
[2016-07-09 19:44] LABS: Creatine Kinase 66 U/L (55-170)
[2016-07-09 19:57] LABS: Creatine Kinase MB 3.5 ng/mL (0.0-2.4); Troponin I <0.012 ng/mL (0.000-0.034)
[2016-07-09] MEDS ORDERED: FLUTICASONE 50MCG/SPRAY NASAL 16GM EA NOSTRIL PRN (21:22)
[2016-07-09] MEDS ORDERED: FUROSEMIDE 20 MG TAB PO PRN (21:22)
[2016-07-09 22:58] VITALS: BMI 23.6
[2016-07-09] MEDS ORDERED: IPRATROPIUM-ALBUTEROL 3 ML NEB INHALATION PRN (23:20)
[2016-07-09] MEDS: SODIUM CHLORIDE 0.9% 1,000 ML IV SCH (23:31)
[2016-07-09] MEDS: DILTIAZEM ORAL 30 MG TAB PO SCH (23:31)
[2016-07-09] MEDS: methylPREDNISolone SOD SUCCI 125 MG/2 ML VIAL IV SCH (23:31)
[2016-07-09] MEDS: IPRATROPIUM-ALBUTEROL 3 ML NEB INHALATION SCH (23:32)
[2016-07-10] MEDS: IPRATROPIUM-ALBUTEROL 3 ML NEB INHALATION SCH ×6 (04:02→23:33)
[2016-07-10] MEDS: methylPREDNISolone SOD SUCCI 125 MG/2 ML VIAL IV SCH ×3 (04:57→17:41)
[2016-07-10 07:18] LABS: Glucose,Whole Blood 130 mg/dL (75-99)
[2016-07-10] MEDS: DILTIAZEM ORAL 30 MG TAB PO SCH ×3 (08:09→20:22)
[2016-07-10] MEDS: FINASTERIDE 5 MG TAB PO SCH (08:09)
[2016-07-10] MEDS: LEVOFLOXACIN 500 MG TAB PO SCH (08:10)
[2016-07-10] MEDS: PHENYTOIN SODIUM EXTENDED 100 MG CAP PO SCH ×2 (08:11→20:21)
[2016-07-10] MEDS: THEOPHYLLINE 24 HOUR 200 MG CAP.ER.24H PO SCH (08:11)
[2016-07-10] MEDS: SODIUM CHLORIDE 0.9% 1,000 ML IV SCH ×2 (08:17→19:38)
--- NOTE | 2016-07-10 10:14 | CONS ---
DATE OF CONSULTATION: Sam Amaya is a 66-year-old male who presented to the ED on 07/09/16 with increasing shortness of breath. He had been at home and recently had been admitted for asthma with chronic obstructive pulmonary disease with acute exacerbation. He was on high-dose steroids, however, he started to worsen. EMS was called and his oxygen saturation was only in the 70s. He was brought to the hospital for further evaluation. I was informed only a short while ago about his admission. He is on BiPAP at this time and short of breath. He transiently was taken off BiPAP and actually seemed to do fair with his O2 sats in the 90s. He is still using his accessory muscles of respiration, especially on expiration. He denies any fever or chills. His past medical history is positive for severe COPD, severe asthma, history of epilepsy, diverticulitis with previous resection, history of benign prosthetic hypertrophy, history of right knee replacement. SOCIAL HISTORY: Patient used to smoke cigarettes, quit smoking in July 2014. He does not drink alcohol excessively. He used to work in sales. FAMILY HISTORY: Positive for NH, CVA and TIA in his father. Mother had a history of NH. Medications prior to admission are Medrol, Víctor-24, Dilantin, Singulair, Levaquin, Ativan, Lasix, Flonase, Proscar, Cardizem, budesonide with formoterol, albuterol, Ventolin and Xolair. On physical examination, respiratory rate 17, pulse 111, temperature 96.7, blood pressure 144/92. HEENT reveals BiPAP mask in place. Chest reveals decreased breath sounds, fair air entry, prolonged expiration, expiratory wheeze. Cardiovascular system reveals an S1 and S2. Abdomens is soft. There is no pedal edema. Chest x-ray shows no discrete infiltrates, but there is hyperinflation. IMPRESSION: 1. 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 2. Acute on chronic respiratory failure. 3. Medical debility. At this point in time, from a pulmonary standpoint, we will keep him on IV steroids, aerosolized steroids, bronchodilators, Singulair. Keep him on GI and DVT prophylaxis. Have him seen by physical medicine and rehab as he does have quite a bit of debility. Depending on how he does, we shall make further changes to his care. Continue antibiotics. I would like to thank you for allowing me to participate in his care.
[2016-07-10] MEDS: LORazepam 1 MG TAB PO PRN ×2 (10:17→20:19)
--- NOTE | 2016-07-10 10:49 | P.HPIM ---
History of Present Illness Chief complaint: Shortness of breath History of present illness: The patient is a 66-year-old gentleman of Dr. Fox for whom I am covering. The patient presented late last evening to the emergency room by EMS with increasing shortness of breath. Patient had been hospitalized last month with shortness of breath along with his asthma and COPD. Despite taking his home medications apparently according to the patient and his he continued to worsen and become more short of breath that even minimal exertion, getting up and down from a chair was causing him to be extremely short of breath. Apparently EMS found his oxygen saturation to be down to 70. Patient has been seen this morning by his fundraising consultant and states he does feel somewhat better on present treatment and on the BiPAP that he was on through the night. He is still short of breath. He even has difficulty talking secondary to his shortness of breath with prolonged expiratory phase and use of accessory muscles. He is overall alert and oriented. Denies any chest pain. Past medical history: Patient does have a history of underlying severe asthma with COPD. Apparently oxygen dependent. Failing on outpatient treatment and corticosteroids. Patient does have a history of seizure disorder. Previous history of BPH. History of hypertension History of previous colon resection for diverticular disease. Previous surgery that includes right knee replacement. Medications: No known ALLERGIES. Home medications: 1. Methylprednisolone 16 mg twice a day 2. Dilantin 200 mg twice a day 3. Singular 10 mg at night 4. Levofloxacin 500 mg daily 5. Ativan 1 mg twice a day 6. Lasix 20 mg daily for edema as needed 7. Flonase nasal 2 sprays in each nostril daily as needed 8. Proscar 5 mg daily 9. Diltiazem 30 mg 3 times a day 10. Symbicort 160-4.5 g at 2 puffs twice a day 11. Nebulized albuterol 2.5 mg 4 times a day 12. Ventolin inhaler 2 puffs 4 times a day as needed. Review of systems: As discussed in the history of present illness. Patient denies any unusual headaches. Has not had that much phlegm production with the cough. No chest pain. No nausea or vomiting. No syncopal episodes. Denies any abdominal pain. No bowel symptomatology. No hematochezia or hematuria. No new urinary difficulties. He states he does have some trace pedal edema at times. No unusual lower extremity discomfort. Family history: Father apparently had myocardial infarctions and strokes. He at age 87. Mother also had coronary artery disease and at age 68. Social history: Patient apparently lives locally with his . He is a former smoker and started smoking at age 19 and apparently quit in the year 2014. No definite history of any excessive alcohol intake. Physical examination: The patient is sitting up in the chair. Once again he is using accessory muscles and has prolonged expiratory phase with pursed lip type respirations. Temperature is 97.3 with a pulse of 100 and respirations 18. Blood pressure 139 /86 and he is 99% saturated on room air. Head is atraumatic. Extraocular movements are intact. Pupils equal and reactive. No carotid bruits or adenopathy or thyromegaly detected. Sounds are very diminished and there is a slight expiratory high-pitched wheezes noted diffusely. Heart tones are distant but regular without murmurs or rubs appreciated. Abdomen is mildly distended but soft and nontender without masses or organomegaly. Extremities reveal some trace pedal edema. No open sores. Neurologically he is alert and oriented. No cranial nerve deficits. No focal weakness. Laboratory values: White count is 4.8 with a hemoglobin 16.5 and a platelet count of 2:15. INR is 1.1. Sodium is 137 with potassium of 5 and a CO2 content of 27. BUN is 15 with creatinine of 0.6 for given him a GFR greater than 60. Blood sugar was 145. Liver function tests were unremarkable with an albumin of 4.2. CK was 3.5 with troponin less than 0.012. Chest x-ray: No acute processes. Finding consistent with COPD. EKG showed sinus tachycardia. Right axis changes and P pulmonale. echocardiogram from last month revealed a ejection fraction of 50-55%. Impressions: 1. Asthmatic bronchitis with acute exacerbation of underlying COPD and acute on chronic respiratory failure. Former tobacco user. 2. History of seizure disorder 3. History of BPH 4. History of hypertension 5. Previous surgeries that include resection for diverticular disease of the colon and right knee surgery. Plans: Patient will be continued on his respiratory treatments and inhalers as per pulmonary medicine. Patient's fundraising consultant has been consulted. Patient also to be continued on his home medications for his chronic medical concerns. Patient also be continued on his antibiotics. He is on heparin subcu for prophylaxis. Corticosteroids. Prognosis still guarded in light of his underlying severe lung disease with the exacerbation. Discussed with patient and at bedside. Past Medical History Past Medical History: Asthma, COPD, Hypertension, Osteoarthritis (OA), Prostate Disorder, Seizure Disorder Additional Past Medical History / Comment(s): epilepsy- last seizure?1970-takes dilantin, bronchitis, DIVERTICULITIS(HAD RESECTION), home 02 3 liters as needed , enlarged prostate, had pnuemovax vaccine 2012, and prevnar 13 UTD ON FLU VACCINE. History of Any Multi-Drug Resistant Organisms: None Reported Past Surgical History: Bowel Resection, Joint Replacement Additional Past Surgical History / Comment(s): rt knee replacement,HAD BOWEL RESECTION D/T DIVERTICULITIS Past Anesthesia/Blood Transfusion Reactions: No Reported Reaction Past Psychological History: No Psychological Hx Reported Additional Psychological History / Comment(s): PT LIVES AT HOME WITH HIS . 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 PT STATED GETS PANIC ATTACKS WHEN HAVING DIFFICULTY BREATHING Smoking Status: Former smoker Past Alcohol Use History: None Reported Additional Past Alcohol Use History / Comment(s): STARTED SMOKING AT AGE 19 quit -2014 Past Drug Use History: None Reported - Past Family History Father Family Medical History: CVA/TIA, Myocardial Infarction ([place]) Additional Family Medical History / Comment(s): IN 2005 AT AGE 87 Mother Family Medical History: Myocardial Infarction ([place]) Additional Family Medical History / Comment(s): AT AGE 68 FROM [place] Medications and Allergies Home Medications Medication Instructions Recorded Confirmed Type Albuterol Inhaler [Ventolin Hfa 2 puff INHALATION RT-QID PRN 06/30/16 07/09/16 History Inhaler] Albuterol Nebulized [Ventolin 2.5 mg INHALATION RT-QID 06/30/16 07/09/16 History Nebulized] Budesonide/Formoterol Fumarate 2 puff INHALATION RT-BID 06/30/16 07/09/16 History [Symbicort 160-4.5 Mcg Inhaler] Furosemide [Lasix] 20 mg PO DAILY PRN 07/01/16 07/09/16 History LORazepam [Ativan] 1 mg PO BID PRN 07/01/16 07/09/16 History Phenytoin Sodium Extended 200 mg PO BID 07/01/16 07/09/16 History [Dilantin] Levofloxacin [Levaquin] 500 mg PO DAILY 07/09/16 07/09/16 History Allergies Allergy/AdvReac Type Severity Reaction Status Date / Time No Known Allergies Allergy Verified 07/09/16 18:25 Physical Exam Vitals: Vital Signs Temp Pulse Pulse Resp BP BP Pulse Ox 07/10/16 09:46 95 07/10/16 09:45 96 07/10/16 09:35 96 07/10/16 08:00 111 H 17 07/10/16 07:00 97.3 F L 100 18 139/86 99 07/10/16 04:09 100 07/10/16 04:02 100 07/10/16 00:00 111 H 17 07/09/16 23:42 108 H 07/09/16 23:32 108 H 07/09/16 22:45 96.7 F L 111 H 17 144/92 97 07/09/16 22:00 98.8 F 103 H 16 121/80 97 07/09/16 21:33 111 H 16 116/86 97 Intake and Output 07/09/16 07/10/16 07/10/16 22:59 06:59 14:59 Intake Total 800 Output Total 350 Balance 450 Intake: IV 600 Sodium Chloride 0.9% 1, 600 000 ml @ 100 mls/hr IV . Q10H HARMONY Rx#:[id number] Oral 200 Output: Urine 350 Other: Voiding Method Urinal Urinal # Voids 2 Weight 74.843 kg Results CBC & Chem 7: 07/09/16 18:10 07/09/16 19:10 Labs: Abnormal Lab Results - Last 24 Hours (Table) 07/10/16 Range/Units 07:05 POC Glucose (mg/dL) 130 H (75-99) mg/dL Thrombosis Risk Factor Assmnt - Choose All That Apply Each Factor Represents 1 point: Abnormal pulmonary function (COPD), Hx of IBD Other Risk Factors: Yes Each Risk Factor Represents 2 Points: Age 61-74 years Thrombosis Risk Factor Assessment Total Risk Factor Score: 4 Thrombosis Risk Factor Assessment Level: Moderate Risk
[2016-07-10 11:30] LABS: Glucose,Whole Blood 118 mg/dL (75-99)
[2016-07-10] MEDS: IBUPROFEN 600 MG TAB PO PRN ×2 (16:00→20:19)
[2016-07-10 17:00] LABS: Glucose,Whole Blood 156 mg/dL (75-99)
[2016-07-10] MEDS: BUDESONIDE 0.5 MG/2 ML NEBU INHALATION SCH (20:03)
[2016-07-10 20:20] LABS: Glucose,Whole Blood 127 mg/dL (75-99)
[2016-07-10] MEDS: MONTELUKAST 10 MG TAB PO SCH (20:21)
[2016-07-10] MEDS: INSULIN LISPRO (humaLOG) 300 UNIT/3 ML VIAL SQ SCH (20:21)
[2016-07-10] MEDS: FAMOTIDINE 20 MG TAB PO SCH (20:24)
[2016-07-10] MEDS: HEPARIN SODIUM,PORCINE 5,000 UNIT/ML 1 ML VIAL SQ SCH (20:24)
[2016-07-11] MEDS: methylPREDNISolone SOD SUCCI 125 MG/2 ML VIAL IV SCH ×5 (01:51→23:31)
[2016-07-11] MEDS: IPRATROPIUM-ALBUTEROL 3 ML NEB INHALATION SCH ×5 (03:44→21:17)
[2016-07-11] MEDS: SODIUM CHLORIDE 0.9% 1,000 ML IV SCH (04:35)
[2016-07-11] MEDS: LORazepam 1 MG TAB PO PRN ×4 (06:12→23:31)
[2016-07-11 07:11] LABS: Glucose,Whole Blood 135 mg/dL (75-99)
[2016-07-11] MEDS: THEOPHYLLINE 24 HOUR 200 MG CAP.ER.24H PO SCH (07:23)
[2016-07-11] MEDS: HEPARIN SODIUM,PORCINE 5,000 UNIT/ML 1 ML VIAL SQ SCH ×2 (07:23→20:13)
[2016-07-11] MEDS: PHENYTOIN SODIUM EXTENDED 100 MG CAP PO SCH ×2 (07:23→20:13)
[2016-07-11] MEDS: DILTIAZEM ORAL 30 MG TAB PO SCH ×3 (07:23→21:47)
[2016-07-11] MEDS: LEVOFLOXACIN 500 MG TAB PO SCH (07:24)
[2016-07-11] MEDS: FINASTERIDE 5 MG TAB PO SCH (07:24)
[2016-07-11] MEDS: FAMOTIDINE 20 MG TAB PO SCH ×2 (07:25→20:13)
[2016-07-11] MEDS: INSULIN LISPRO (humaLOG) 300 UNIT/3 ML VIAL SQ SCH ×4 (07:29→20:14)
[2016-07-11] MEDS: BUDESONIDE 0.5 MG/2 ML NEBU INHALATION SCH ×2 (08:04→21:17)
--- NOTE | 2016-07-11 09:11 | P.PN ---
Progress Note - Text The patient is a 66-year-old gentleman of Dr. Fox for whom I am covering. The patient presented 2 evening ago to the emergency room with shortness of breath and not responding to outpatient medications and treatment and has been admitted with an acute exacerbation of his underlying severe COPD with acute on chronic respiratory failure. He is a former tobacco user. This morning he is sitting at the side of the bed. He is eating some breakfast. He states he does feel better. Denies any chest pain. He is short of breath with exertion but is getting up to the bathroom. Apparently he had a normal bowel movement. Vital signs this morning reveal a temperature of 98.6 with a pulse of 108 and respirations 16. Blood pressure is 131/85 and he is 93% saturated on 3 L. Head and neck exam unremarkable. Lungs are generally clear but overall diminished. Heart tones also are diminished. No unusual edema. He is alert and oriented. Cranial nerves intact. No focal weakness noted. Laboratory: Accu-Cheks are in the mid to lower 100s. Impressions and plans: Patient overall appears to be improving in terms of his respiratory status. We' ll continue his medications and treatment. Notes from pulmonary medicine regarded. Have ordered CBC and electrolytes for the morning. Discussed with patient and nursing staff at bedside. We'll change IV to heparin well.
[2016-07-11 09:49] LABS: Hemoglobin A1C 5.8 % (4.2-6.1)
[2016-07-11] MEDS: IBUPROFEN 600 MG TAB PO PRN ×2 (10:50→21:47)
[2016-07-11 11:55] LABS: Glucose,Whole Blood 142 mg/dL (75-99)
[2016-07-11 17:20] LABS: Glucose,Whole Blood 119 mg/dL (75-99)
[2016-07-11] MEDS: MONTELUKAST 10 MG TAB PO SCH (20:13)
[2016-07-11 20:18] LABS: Glucose,Whole Blood 147 mg/dL (75-99)
--- NOTE | 2016-07-11 20:50 | PN ---
DATE OF SERVICE: 07/11/2016. The patient is hemodynamically stable. He is less short of breath. Feels anxious. On physical examination, his blood pressure 121/79, respiratory rate 16, pulse rate of 112, temperature 97.5, O2 sat on 4 liters by nasal cannula is 92%. HEENT reveals pupils are equal. Chest reveals expiratory wheeze. Cardiovascular system reveals an S1 and S2. ABDOMEN: Soft. There is no pedal edema. IMPRESSION: 1. Severe asthma with chronic obstructive pulmonary disease with acute exacerbation. 2. Acute on chronic respiratory failure. Continue IV steroids, bronchodilators, aerosolized steroids, Singulair, GI and DVT prophylaxis. Increase his activity level. See if we can hold off on using the BiPAP at this time.
[2016-07-12] MEDS: IPRATROPIUM-ALBUTEROL 3 ML NEB INHALATION SCH ×6 (01:09→19:33)
[2016-07-12] MEDS: IBUPROFEN 600 MG TAB PO PRN ×2 (04:55→18:41)
[2016-07-12] MEDS: methylPREDNISolone SOD SUCCI 125 MG/2 ML VIAL IV SCH ×3 (05:28→17:27)
[2016-07-12] MEDS: LORazepam 1 MG TAB PO PRN ×2 (05:28→18:41)
--- NOTE | 2016-07-12 06:54 | P.CONS ---
History of Present Illness - Chief Complaint Walking difficulty - History of Present Illness I had the op to see patient for inpatient rehab consultation with regard to walking difficulty. Patient admitted to [facility] July 09 with COPD exacerbation and shortness of breath. Chest x-ray consistent with COPD. I have prescribed PT and OT at this time. Previous functional sick, as elicited from patient: 66-year-old right-handed white male who is lives in [place] home with and 2 grandkids. Retired. does most of the cooking. Patient does most the driving and laundry. Independent with standing shower. Gait without device. Dr. Rose his regular doctor. Family history of hypertension in mother and heart attack in both parents. Review of Systems Review of systems: ENT: Denies sneezes or discharge. Eyes: Denies discharge or photophobia. Cardiac: Denies chest pain or palpitation. Pulmonary: Mild shortness of breath. Gastrointestinal: Denies nausea, emesis, constipation, diarrhea. Genitourinary: Denies discharge or frequency. Musculoskeletal: Denies muscle or bone aches. Neurologic: Mild weakness. Endocrine: Denies shakes or sweats. Oncology: Denies cancers. Dermatologic: Denies rash, itching, pruritus. ALLERGY/immunology: Denies sneezes, rashes. Past Medical History Past Medical History: Asthma, COPD, Hypertension, Osteoarthritis (OA), Prostate Disorder, Seizure Disorder Additional Past Medical History / Comment(s): epilepsy- last seizure?1970-takes dilantin, bronchitis, DIVERTICULITIS(HAD RESECTION), home 02 3 liters as needed , enlarged prostate, had pnuemovax vaccine 2012, and prevnar 13 UTD ON FLU VACCINE. History of Any Multi-Drug Resistant Organisms: None Reported Past Surgical History: Bowel Resection, Joint Replacement Additional Past Surgical History / Comment(s): rt knee replacement,HAD BOWEL RESECTION D/T DIVERTICULITIS Past Anesthesia/Blood Transfusion Reactions: No Reported Reaction Past Psychological History: No Psychological Hx Reported Additional Psychological History / Comment(s): PT LIVES AT HOME WITH HIS . 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 PT STATED GETS PANIC ATTACKS WHEN HAVING DIFFICULTY BREATHING Smoking Status: Former smoker Past Alcohol Use History: None Reported Additional Past Alcohol Use History / Comment(s): STARTED SMOKING AT AGE 19 quit 3-2014 Past Drug Use History: None Reported - Past Family History Father Family Medical History: CVA/TIA, Myocardial Infarction ([place]) Additional Family Medical History / Comment(s): IN 2005 AT AGE 87 Mother Family Medical History: Myocardial Infarction ([place]) Additional Family Medical History / Comment(s): AT AGE 68 FROM [place] Medications and Allergies Home Medications Medication Instructions Recorded Confirmed Type Albuterol Inhaler [Ventolin Hfa 2 puff INHALATION RT-QID PRN 06/30/16 07/09/16 History Inhaler] Albuterol Nebulized [Ventolin 2.5 mg INHALATION RT-QID 06/30/16 07/09/16 History Nebulized] Budesonide/Formoterol Fumarate 2 puff INHALATION RT-BID 06/30/16 07/09/16 History [Symbicort 160-4.5 Mcg Inhaler] Furosemide [Lasix] 20 mg PO DAILY PRN 07/01/16 07/09/16 History LORazepam [Ativan] 1 mg PO BID PRN 07/01/16 07/09/16 History Phenytoin Sodium Extended 200 mg PO BID 07/01/16 07/09/16 History [Dilantin] Levofloxacin [Levaquin] 500 mg PO DAILY 07/09/16 07/09/16 History Allergies Allergy/AdvReac Type Severity Reaction Status Date / Time No Known Allergies Allergy Verified 07/09/16 18:25 Physical Exam Vitals: Vital Signs Temp Pulse Pulse Resp BP Pulse Ox 07/12/16 04:53 104 H 07/12/16 04:46 100 07/12/16 01:16 108 H 07/12/16 01:09 104 H 07/11/16 22:10 97.4 F L 113 H 18 130/85 90 L 07/11/16 21:45 104 H 07/11/16 21:17 102 H 07/11/16 16:11 104 H 07/11/16 16:02 104 H 07/11/16 15:00 97.5 F L 112 H 16 121/79 92 L 07/11/16 11:55 108 H 07/11/16 08:21 108 H 07/11/16 08:04 104 H 07/11/16 07:35 106 H 07/11/16 07:00 98.6 F 106 H 16 131/85 93 L Intake and Output 07/11/16 07/11/16 07/12/16 14:59 22:59 06:59 Intake Total 300 Output Total 700 Balance 300 -700 Intake: IV 300 Sodium Chloride 0.9% 1, 300 000 ml @ 100 mls/hr IV . Q10H HARMONY Rx#:[id number] Output: Urine 700 Other: Voiding Method Urinal Urinal Urinal # Voids 600 1 Skin: Good color, texture, turgor. General: Medium build and comfortable appearance. Head: Normocephalic, atraumatic. Eyes: Symmetric. Pupils equal round. Ears: Symmetric. Hearing within normal limits. Mouth: Clear. Neck: Supple. Carotid without bruit. Cardiac: Regular rate and rhythm. Lungs: Clear anteriorly and posteriorly. Abdomen: Soft active nontender. Extremities: Normal tone. Neurological: Mental status: Alert, cooperative, pleasant. Cranial nerves: Symmetric facial tone and trapezius. Motor: 4 over 5 in arms and 2+ over 5 in legs, at best. Sensation: Intact throughout. DTRs: Symmetric and equal throughout. Mobility: Did not attempt to sit or stand on my own. Results CBC & Chem 7: 07/09/16 18:10 07/09/16 19:10 Labs: Abnormal Lab Results - Last 24 Hours (Table) 07/11/16 07/11/16 07/11/16 Range/Units 06:51 11:48 17:18 POC Glucose (mg/dL) 135 H 142 H 119 H (75-99) mg/dL 07/11/16 Range/Units 20:07 POC Glucose (mg/dL) 147 H (75-99) mg/dL Chest x-ray: report reviewed (COPD.) Assessment and Plan (1) Acute exacerbation of chronic obstructive airways disease Status: Acute Plan: Impression: 1. Medical debility. 2. COPD exacerbation. 3. Asthma. 4. Hypertension. 5. History of seizure disorder. 6. Osteoarthritis. Comments and plan: At this time I have prescribed physical and outpatient therapy. We'll follow therapies with yourself. Safety concerns currently anticipated. Hopefully with medical treatment, functional problems resolve quickly.
[2016-07-12 07:23] LABS: Glucose,Whole Blood 122 mg/dL (75-99)
[2016-07-12] MEDS: INSULIN LISPRO (humaLOG) 300 UNIT/3 ML VIAL SQ SCH ×4 (07:57→20:35)
[2016-07-12 08:03] LABS: Basophils % (A) 0 %; CH 31.9; CHCM 33.3; Eosinophils % (A) 0 %; HCT 46.3 % (39.0-53.0); HDW 2.21; HGB 15.2 gm/dL (13.0-17.5); Luc # (Auto) 0.06; Luc % (Auto) 1; Lymphocytes # (A) 0.7 k/uL (1.0-4.8); Lymphocytes % (A) 7 %; MCH 31.6 pg (25.0-35.0); MCHC 32.8 g/dL (31.0-37.0); MCV 96.4 fL (80.0-100.0); Mean Platelet Volume 7.7; Monocytes # (A) 0.3 k/uL (0-1.0); Monocytes % (A) 3 %; Neutrophils # (A) 8.3 k/uL (1.3-7.7); Neutrophils % (A) 89 %; RDW 12.4 % (11.5-15.5); WBC 9.3 k/uL (3.8-10.6); WBC (Perox) 8.91
--- NOTE | 2016-07-12 08:31 | P.PN ---
Progress Note - Text The patient is a 66-year-old gentleman of Dr. Fox for whom I am covering. The patient presented to 3 evenings ago to the emergency room with shortness of breath and not responding to outpatient medications and treatments and was admitted with an acute exacerbation of his very severe COPD with acute on chronic respiratory failure. At first he didn't need BiPAP. Apparently he has generally been feeling better but intermittently is still getting short of breath with minimal movement. He is also very anxious at times. Takes Ativan for his anxiety. Temperature is 96.9 with a pulse of 104 and respirations 20. Blood pressure 121 /82 and he is 93% saturated on 4 L nasal cannula at this time Lungs are diffusely diminished. Some end expiratory wheezes heard. Heart tones are also diminished. No unusual edema. No neurological changes laboratory values: White count is 9.3 with hemoglobin 15 and a platelet count of 259. Blood sugar 122 this morning. Impressions and plans: Overall this 58-year-old gentleman with severe COPD is continuing with his treatments and IV corticosteroids. Patient is followed by his party director. Patient has been evaluated for rehab and will be continuing with physical therapy. Further recommendations pending results of above.
[2016-07-12] MEDS: BUDESONIDE 0.5 MG/2 ML NEBU INHALATION SCH ×2 (08:38→19:33)
[2016-07-12 08:39] LABS: Anion Gap 10 mmol/L; Blood Urea Nitrogen 21 mg/dL (9-20); Calcium 9.5 mg/dL (8.4-10.2); Carbon Dioxide 27 mmol/L (22-30); Chloride 102 mmol/L (98-107); Glucose 116 mg/dL (74-99); Non-African American GFR(MDRD) >60 (>60 ml/min/1.73 sqM); Potassium 5.2 mmol/L (3.5-5.1); Sodium 139 mmol/L (137-145)
[2016-07-12] MEDS: DILTIAZEM ORAL 30 MG TAB PO SCH ×3 (10:06→20:31)
[2016-07-12] MEDS: FAMOTIDINE 20 MG TAB PO SCH ×2 (10:06→20:31)
[2016-07-12] MEDS: PHENYTOIN SODIUM EXTENDED 100 MG CAP PO SCH ×2 (10:07→20:31)
[2016-07-12] MEDS: THEOPHYLLINE 24 HOUR 200 MG CAP.ER.24H PO SCH (10:07)
[2016-07-12] MEDS: FINASTERIDE 5 MG TAB PO SCH (10:07)
[2016-07-12] MEDS: HEPARIN SODIUM,PORCINE 5,000 UNIT/ML 1 ML VIAL SQ SCH ×2 (10:07→20:31)
[2016-07-12 11:51] LABS: Glucose,Whole Blood 110 mg/dL (75-99)
--- NOTE | 2016-07-12 11:52 | CDI ---
In responding to this query, please exercise your independent professional judgment. The [facility] Coding Staff and Clinical Documentation Specialists appreciate your assistance in clarifying documentation, maintaining compliance with coding guidelines, accurately documenting patients condition and capturing severity of illness. The fact that a question is asked does not imply that any particular answer is desired or expected. Communication forms are a method of clarifying documentation and are not made part of the Legal Health Record. Thank you in advance for your clarification. Last Revision, July [address] [address] Documentation Clarification Form Date: 07/12/2016 11:31:00 AM From: Lissakurtis Winteran Admit Date: 07/09/2016 9:18:00 PM Patient Name: Sam Amaya Visit Number: [id number] Discharge Date: Dr. Toro Miguel Asthma is documented in your consult and progress notes. Patient history/risk factors: Asthma, COPD, Chronic respiratory failure on home O2, Clinical Indicators: Presented with increasing shortness of breath with O2 sat' s in the 70's. He was using his accessory muscles, tachypnea. Chest X-ray: No infiltrates Vital Signs: 147/96 126 25 97.8 98 % BIPAP Other Clinical Indicators: Patient has history of underlying severe asthma with COPD H/P: Asthmatic bronchitis with acute exacerbation of COPD Treatment: Solu-Medrol IV BiPAP (titrate) O2 Monitor O2 Sat's Nebulized albuterol Ventolin inhalers Symbicort as ordered In your professional opinion, can you please further specify the following, if known? Asthma With Acute Exacerbation Status asthmaticus Acute lower respiratory infection COPD (specify with or without exacerbation) Chronic obstructive bronchitis Other, please specify Unable to determine Severity Mild intermittent Mild persistent Moderate persistent Severe persistent Other, please specify Unable to determine Form or Type Cough variant Childhood Exercise induced bronchospasm Extrinsic allergic Idiosyncratic Intrinsic nonallergic Late-onset Mixed Other, please specify Unable to determine Please document in your progress notes in order to capture severity of illness and risk of mortality. Include clinical findings that support your diagnosis. FYI: Press F11 to launch patient chart. Place X here if this finding has no clinical significance, is not applicable or if you are not able to provide any additional documentation. MTDD
--- NOTE | 2016-07-12 12:09 | CDI ---
In responding to this query, please exercise your independent professional judgment. The [facility] Coding Staff and Clinical Documentation Specialists appreciate your assistance in clarifying documentation, maintaining compliance with coding guidelines, accurately documenting patients condition and capturing severity of illness. The fact that a question is asked does not imply that any particular answer is desired or expected. Communication forms are a method of clarifying documentation and are not made part of the Legal Health Record. Thank you in advance for your clarification. Last Revision, July 2015 Alice Robles [address] [facility] [place] [address] Documentation Clarification Form Date: 07/12/2016 11:53:00 AM From: Lissa Rubi Admit Date: 07/09/2016 9:18:00 PM Patient Name: Sam Amaya Visit Number: [id number] Discharge Date: Dr. Toro Miguel The patient presented with the following respiratory symptoms: Shortness of breath, labored respiration, accessory muscle use, cough, and short of breath with activity In your Consultation on 07/10/16 Acute on chronic respiratory failure is documented. History/Risk Factors: Asthma, COPD, Chronic respiratory failure on home O2, Tobacco use: Former smoker Home oxygen: 2/L [place] Clinical Indicators: EMS was called and his O2 saturation was only in the 70' s. He was placed on BiPAP mask. Vital signs: 35581 126 25 98.7 97 % BIPAP Lung/Breathing assessment: decreased breath sounds, fair air entry, prolonged expiration, expiratory wheeze Treatment: Breathing tx: Bronchodilators, Singular, Solu-Medrol IV Continuous Pulse ox BiPap (titrate) Monitor O2 Sat's In your professional opinion, can you please further clarify if the Acute on Chronic respiratory failure is? Respiratory failure with hypercapnia Respiratory failure with hypoxia Unable to determine Please document in your progress notes in order to capture severity of illness and risk of mortality. Include clinical findings that support your diagnosis. FYI: Press F11 to launch patient chart. Place X here if this finding has no clinical significance, is not applicable or if you are not able to provide any additional documentation. MTDD
[2016-07-12 17:07] LABS: Glucose,Whole Blood 118 mg/dL (75-99)
--- NOTE | 2016-07-12 19:41 | PN ---
DATE OF SERVICE: 07/12/2016 Patient is a 66-year-old male who is seen sitting up in a chair visiting with a visitor, comfortable when entering the room. Patient did stand up after I came in the room and said he was getting more short of breath. Subsequently sat back down but does complain of ongoing shortness of breath and associated weakness. Patient is afebrile, intermittently tachycardic; otherwise stable, in no acute distress. PHYSICAL EXAMINATION: VITAL SIGNS: Temperature 96.9, heart rate 104, respiratory rate 20, blood pressure 121/82. Oxygen saturation is 93% on 4 L oxygen via nasal cannula. HEENT: Head is normocephalic, atraumatic. NECK: Supple. Trachea is midline. LUNGS: With decreased breath sounds throughout. Prolonged expiratory phase. HEART: S1 and S2 are heard. Not tachycardic. ABDOMEN: Soft. Bowel sounds are heard. EXTREMITIES: With trace edema. NEUROLOGIC: Patient is awake, alert, is somewhat anxious, does have anxiety issues. Patient was reassured and did calm down, however. LABS: White count is 9.3, hemoglobin 15.2, hematocrit 46.3 with 259,000 platelets. Sodium 139, potassium 5.2, chloride 102. CO2 is 27. Anion gap is 10. BUN is 21, creatinine 0.68. Glucose is 116. Calcium is 9.5. No new imaging to review. IMPRESSION: 1. Severe asthma with chronic obstructive pulmonary disease with acute exacerbation. 2. Acute on chronic respiratory failure. 3. Anxiety. PLAN: Continue current medications, which have been reviewed, with IV steroids 60 mg q.6 hours, bronchodilators and aerosolized steroids. Continue the Singulair. Continue GI and DVT prophylaxis. Will add chest physiotherapy and flutter valve. Patient does have BiPAP, which can be used p.r.n. Will follow closely with you, making further changes as necessary.
[2016-07-12 20:10] LABS: Glucose,Whole Blood 163 mg/dL (75-99)
[2016-07-12] MEDS: MONTELUKAST 10 MG TAB PO SCH (20:31)
[2016-07-13] MEDS: IBUPROFEN 600 MG TAB PO PRN ×2 (00:29→19:17)
[2016-07-13] MEDS: methylPREDNISolone SOD SUCCI 125 MG/2 ML VIAL IV SCH ×4 (00:30→17:07)
[2016-07-13] MEDS: LORazepam 1 MG TAB PO PRN ×4 (00:30→19:17)
[2016-07-13] MEDS: IPRATROPIUM-ALBUTEROL 3 ML NEB INHALATION SCH ×7 (00:40→23:44)
[2016-07-13 07:15] LABS: Glucose,Whole Blood 117 mg/dL (75-99)
[2016-07-13] MEDS: INSULIN LISPRO (humaLOG) 300 UNIT/3 ML VIAL SQ SCH ×4 (07:57→21:42)
[2016-07-13] MEDS: FAMOTIDINE 20 MG TAB PO SCH ×2 (08:03→21:41)
[2016-07-13] MEDS: DILTIAZEM ORAL 30 MG TAB PO SCH ×3 (08:03→21:41)
[2016-07-13] MEDS: FINASTERIDE 5 MG TAB PO SCH (08:04)
[2016-07-13] MEDS: PHENYTOIN SODIUM EXTENDED 100 MG CAP PO SCH ×2 (08:04→21:41)
[2016-07-13] MEDS: THEOPHYLLINE 24 HOUR 200 MG CAP.ER.24H PO SCH (08:04)
[2016-07-13] MEDS: HEPARIN SODIUM,PORCINE 5,000 UNIT/ML 1 ML VIAL SQ SCH ×2 (08:04→21:41)
[2016-07-13] MEDS: BUDESONIDE 0.5 MG/2 ML NEBU INHALATION SCH ×2 (08:07→20:25)
--- NOTE | 2016-07-13 08:12 | P.PN ---
Progress Note - Text The patient is a 58-year-old gentleman of Dr. Rose'efren for whom I am covering. Patient does have severe underlying COPD who presented with an exacerbation of 4 days previous. Patient continues treatment with IV corticosteroids along with his respiratory treatments and is being followed by pulmonary medicine. This morning patient just returned from the bathroom and is shortness of breath sitting in bed but overall still feels better. Denies any chest pain. No fever or chills. No nausea or vomiting. Last vitals reveal temperature of 97.5 with a pulse of 100 and respirations 18. Blood pressure is 136/85 and he was 91% saturated on 4 L. Breath sounds are generally diminished. Heart tones also are diminished but regular. Abdomen nontender. No unusual edema in the legs. No focal neurological changes. Laboratory: Yesterday revealed a white count of 9.3 with a hemoglobin 15.2 and a platelet count of 259. Mild potassium elevation of 5.2. BUN of 21 and creatinine 0.68 given her GFR greater than 60. Accu-Cheks have been in the mid to low 100s. Impressions and plans: Patient with a severe exacerbation of COPD. Pulmonary note regarded. We'll continue present treatment. Discussed with patient and staff in the room this morning. Evaluation for rehab also in process.
[2016-07-13 11:49] LABS: Glucose,Whole Blood 96 mg/dL (75-99)
[2016-07-13 17:01] LABS: Glucose,Whole Blood 132 mg/dL (75-99)
[2016-07-13 20:22] LABS: Glucose,Whole Blood 201 mg/dL (75-99)
[2016-07-13] MEDS: MONTELUKAST 10 MG TAB PO SCH (21:41)
--- NOTE | 2016-07-13 22:21 | PN ---
DATE OF SERVICE: 07/13/2016 He was seen on 07/13/2016. He is hemodynamically stable. He continues to have shortness of breath. On physical examination, temperature is 97.4, respiratory rate 16, blood pressure 127/69, O2 sat on 4 liters by nasal cannula is 90%. Heart rate of 108. HEENT: Reveals pupils that are equal. No jugular venous distention. Chest reveals decreased breath sounds, prolonged expiration, bilateral expiratory wheeze. Cardiovascular system reveals an S1, S2. ABDOMEN: Soft. There is no pedal edema. Oxygen saturation on minimal exertion 63%. IMPRESSION: 1. Severe asthma with chronic obstructive pulmonary disease with acute exacerbation. 2. Acute on chronic respiratory failure. At this point in time, continue bronchodilators, aerosolized steroids, IV steroids. GI and DVT prophylaxis. His prognosis at this time is guarded. He was counseled regarding his condition and this approach.
[2016-07-14] MEDS: methylPREDNISolone SOD SUCCI 125 MG/2 ML VIAL IV SCH ×2 (00:59→06:06)
[2016-07-14] MEDS: IPRATROPIUM-ALBUTEROL 3 ML NEB INHALATION SCH ×5 (03:44→19:31)
[2016-07-14] MEDS: LORazepam 1 MG TAB PO PRN ×3 (06:09→23:22)
[2016-07-14] MEDS: IBUPROFEN 600 MG TAB PO PRN ×3 (06:09→23:23)
[2016-07-14 07:37] LABS: Glucose,Whole Blood 118 mg/dL (75-99)
[2016-07-14] MEDS: INSULIN LISPRO (humaLOG) 300 UNIT/3 ML VIAL SQ SCH ×4 (07:44→20:23)
--- NOTE | 2016-07-14 08:02 | P.PN ---
Progress Note - Text The patient is a 66-year-old gentleman of Dr. Fox for whom I am covering. The patient does have very severe underlying COPD and presented with exacerbation about 5 days ago. The patient continues with treatments consisting of IV corticosteroids along with his respiratory treatments. He is still short of breath with minimal exertion even getting up to use the bedside commode. But states he is feeling somewhat better this morning. No unusual chest pain. Vital signs reveal a temperature of 98.2 with a pulse of 98 and respirations 22. Blood pressure is 161/65 and he is 94% saturated on 4 L. The patient does have an increased AP diameter. Lung sounds are diminished diffusely. Heart tones also diminished but appear to be regular. Abdomen nontender. No unusual edema. No focal neurological changes. Blood sugar this morning is 118. Impressions and plans: Notes from pulmonary medicine regarded. Continue present treatment. Discussed with patient at bedside. Overall prognosis is extremely guarded in light of the severe underlying COPD.
[2016-07-14] MEDS: BUDESONIDE 0.5 MG/2 ML NEBU INHALATION SCH ×2 (08:17→19:30)
[2016-07-14] MEDS: HEPARIN SODIUM,PORCINE 5,000 UNIT/ML 1 ML VIAL SQ SCH ×3 (08:18→23:22)
[2016-07-14] MEDS: FINASTERIDE 5 MG TAB PO SCH (08:18)
[2016-07-14] MEDS: THEOPHYLLINE 24 HOUR 200 MG CAP.ER.24H PO SCH (08:18)
[2016-07-14] MEDS: PHENYTOIN SODIUM EXTENDED 100 MG CAP PO SCH ×2 (08:18→21:14)
[2016-07-14] MEDS: FAMOTIDINE 20 MG TAB PO SCH ×2 (08:18→21:15)
[2016-07-14] MEDS: DILTIAZEM ORAL 30 MG TAB PO SCH ×3 (08:18→21:15)
--- NOTE | 2016-07-14 11:02 | P.PN ---
Subjective Principal diagnosis: Acute exacerbation of COPD Patient seen and examined. Patient states he's feeling a little bit better overall. He still gets very short of breath with exertion. He states he is planning to go home with home health care. He has no other needs or complaints at this time. Objective - Vital Signs Vital signs: Vital Signs Temp 98.2 F 07/13/16 21:37 Pulse 100 07/14/16 08:42 Resp 20 07/14/16 07:00 BP 127/96 07/14/16 07:00 Pulse Ox 94 L 07/14/16 07:00 Intake & Output 07/13/16 07/14/16 07/14/16 18:59 06:59 18:59 Intake Total 240 250 Output Total 900 Balance 240 -650 Intake: Oral 240 250 Output: Urine 900 Other: Voiding Method Toilet Toilet Urinal Urinal # Voids 1 # Bowel Movements 1 - Exam Gen.: Patient is alert and oriented 3, no acute distress Cardiovascular: Regular rate and rhythm, S1/S2 Lungs: Diminished breath sounds bilaterally with prolonged expiratory phase Abdomen: Soft nontender nondistended positive bowel sounds Extremities: No edema - Labs CBC & Chem 7: 07/12/16 07:32 07/12/16 07:32 Labs: Abnormal Lab Results - Last 24 Hours (Table) 07/13/16 07/13/16 07/14/16 Range/Units 17:00 20:12 07:00 POC Glucose (mg/dL) 132 H 201 H 118 H (75-99) mg/dL Assessment and Plan Plan: Acute exacerbation of COPD and asthma, severe persistent, ALLERGIC Tracheobronchitis Bronchospasm Severe emphysema History of tobacco abuse Dyspnea on exertion Hypertension O2 to maintain saturation greater than equal to 88% Bronchodilators and Pulmicort Singulair Continue Xolair as an outpatient Will add Perforomist Check theophylline level Incentive spirometry and pulmonary hygiene Discuss pulmonary rehab as an outpatient Steroid taper Overall prognosis is guarded
[2016-07-14 11:38] LABS: Glucose,Whole Blood 133 mg/dL (75-99)
[2016-07-14] MEDS: methylPREDNISolone SOD SUCCI 40 MG/ML 1 ML VIAL IV SCH ×2 (15:10→23:22)
[2016-07-14 17:15] LABS: Glucose,Whole Blood 115 mg/dL (75-99)
[2016-07-14] MEDS: FORMOTEROL FUMARATE 20 MCG/2 ML NEBU INHALATION SCH (19:30)
[2016-07-14 20:24] LABS: Glucose,Whole Blood 130 mg/dL (75-99)
[2016-07-14] MEDS: MONTELUKAST 10 MG TAB PO SCH (21:15)
[2016-07-15] MEDS: IPRATROPIUM-ALBUTEROL 3 ML NEB INHALATION SCH ×7 (00:13→23:34)
[2016-07-15 07:18] LABS: Glucose,Whole Blood 108 mg/dL (75-99)
[2016-07-15] MEDS: INSULIN LISPRO (humaLOG) 300 UNIT/3 ML VIAL SQ SCH ×4 (07:32→21:43)
[2016-07-15] MEDS: HEPARIN SODIUM,PORCINE 5,000 UNIT/ML 1 ML VIAL SQ SCH ×2 (07:39→17:58)
[2016-07-15] MEDS: methylPREDNISolone SOD SUCCI 40 MG/ML 1 ML VIAL IV SCH ×2 (07:39→17:58)
[2016-07-15] MEDS: THEOPHYLLINE 24 HOUR 200 MG CAP.ER.24H PO SCH (07:40)
[2016-07-15] MEDS: PHENYTOIN SODIUM EXTENDED 100 MG CAP PO SCH ×2 (07:40→21:42)
[2016-07-15] MEDS: FAMOTIDINE 20 MG TAB PO SCH ×2 (07:40→21:42)
[2016-07-15] MEDS: DILTIAZEM ORAL 30 MG TAB PO SCH ×3 (07:40→21:43)
[2016-07-15] MEDS: FINASTERIDE 5 MG TAB PO SCH (07:41)
[2016-07-15] MEDS: IBUPROFEN 600 MG TAB PO PRN ×2 (07:48→19:14)
[2016-07-15] MEDS: LORazepam 1 MG TAB PO PRN ×2 (07:48→19:14)
[2016-07-15] MEDS: FORMOTEROL FUMARATE 20 MCG/2 ML NEBU INHALATION SCH ×2 (08:30→20:26)
[2016-07-15] MEDS: BUDESONIDE 0.5 MG/2 ML NEBU INHALATION SCH ×2 (08:30→20:26)
--- NOTE | 2016-07-15 08:36 | P.PN ---
Progress Note - Text The patient is a 66-year-old gentleman of Dr. Fox for whom I am covering. Patient has very severe underlying COPD and presented with exacerbation about 6 days previous. Patient has been on IV corticosteroids along with his respiratory treatments. He is slowly improving. Still somewhat short of breath with getting to the bathroom in the room. No unusual chest pain. Vital signs reveal a temperature 97.3 with a pulse of the 105 and respirations 18. Blood pressure 112/80 and he is 93% saturated with 4 L nasal cannula. Breath sounds are generally diminished. Heart tones are also diminished. No unusual edema. Overall he is in good spirits without focal neurological deficits or changes. Laboratory Blood sugar is 108. Theophylline level was 3.9. Impressions and plans: Discussed with patient and nursing staff today. Pulmonary will likely be evaluating patient later today. Pulmonary progress notes were guarded. Continue present medications.
[2016-07-15 11:44] LABS: Glucose,Whole Blood 105 mg/dL (75-99)
--- NOTE | 2016-07-15 11:54 | P.PN ---
Subjective Principal diagnosis: Acute exacerbation of COPD Patient seen and examined. Patient states his breathing is better overall. He has just returned from the bathroom and shower and is a little short of breath. He is asking if he can resume pulmonary rehabilitation as an outpatient. This will be arranged at our office. Objective - Vital Signs Vital signs: Vital Signs Temp 97.3 F L 07/15/16 07:00 Pulse 116 H 07/15/16 09:04 Resp 18 07/15/16 07:00 BP 112/80 07/15/16 07:00 Pulse Ox 93 L 07/15/16 07:00 Intake & Output 07/14/16 07/15/16 07/15/16 18:59 06:59 18:59 Intake Total 440 Output Total 400 Balance 40 Weight 74.843 kg Intake: Oral 440 Output: Urine 400 Other: Voiding Method Urinal Urinal # Voids 1 # Bowel Movements 1 1 - Exam Gen.: Patient is alert and oriented 3, no acute distress Cardiovascular: Regular rate and rhythm, S1/S2 Lungs: Diminished breath sounds bilaterally with prolonged expiratory phase Abdomen: Soft nontender nondistended positive bowel sounds Extremities: No edema - Labs CBC & Chem 7: 07/12/16 07:32 07/12/16 07:32 Labs: Abnormal Lab Results - Last 24 Hours (Table) 07/14/16 07/14/16 07/15/16 Range/Units 17:09 20:19 07:10 POC Glucose (mg/dL) 115 H 130 H 108 H (75-99) mg/dL 07/15/16 Range/Units 11:42 POC Glucose (mg/dL) 105 H (75-99) mg/dL Assessment and Plan Plan: Acute exacerbation of COPD and asthma, severe persistent, ALLERGIC Tracheobronchitis Bronchospasm Severe emphysema History of tobacco abuse Dyspnea on exertion Hypertension O2 to maintain saturation greater than equal to 88% Bronchodilators and Pulmicort Singulair Continue Xolair as an outpatient Continue Perforomist Discontinue theophylline due to tachycardia Incentive spirometry and pulmonary hygiene Discuss pulmonary rehab as an outpatient Steroid taper Overall prognosis is guarded
[2016-07-15 17:11] LABS: Glucose,Whole Blood 114 mg/dL (75-99)
[2016-07-15 20:09] LABS: Glucose,Whole Blood 157 mg/dL (75-99)
[2016-07-15] MEDS: MONTELUKAST 10 MG TAB PO SCH (21:43)
[2016-07-15 22:18] VITALS: TEMP 97.4
[2016-07-16] MEDS: methylPREDNISolone SOD SUCCI 40 MG/ML 1 ML VIAL IV SCH ×2 (00:02→08:06)
[2016-07-16] MEDS: HEPARIN SODIUM,PORCINE 5,000 UNIT/ML 1 ML VIAL SQ SCH ×2 (00:02→08:06)
[2016-07-16] MEDS: IPRATROPIUM-ALBUTEROL 3 ML NEB INHALATION SCH ×3 (03:17→11:06)
[2016-07-16 06:54] LABS: Glucose,Whole Blood 83 mg/dL (75-99)
[2016-07-16] MEDS: BUDESONIDE 0.5 MG/2 ML NEBU INHALATION SCH (07:13)
[2016-07-16] MEDS: FORMOTEROL FUMARATE 20 MCG/2 ML NEBU INHALATION SCH (07:13)
[2016-07-16] MEDS: INSULIN LISPRO (humaLOG) 300 UNIT/3 ML VIAL SQ SCH (08:05)
[2016-07-16] MEDS: FINASTERIDE 5 MG TAB PO SCH (08:06)
[2016-07-16] MEDS: PHENYTOIN SODIUM EXTENDED 100 MG CAP PO SCH (08:06)
[2016-07-16] MEDS: DILTIAZEM ORAL 30 MG TAB PO SCH (08:07)
[2016-07-16] MEDS: FAMOTIDINE 20 MG TAB PO SCH (08:07)
--- NOTE | 2016-07-16 08:18 | P.PN ---
Progress Note - Text The patient is a 66-year-old gentleman of Dr. Rose's for whom I'm covering. This gentleman has very severe underlying COPD and presented with exacerbation 1 week ago. He has been gradually improving on IV corticosteroids along with respiratory treatments. This morning he states he feels the best that he has so far. He still has a harsh cough. He has been able to ambulate a little better with a little less shortness of breath. Vital signs reveal temperature of 97.4 with a pulse of 102 and respirations 16. Blood pressure was 125/76 and he is 90% saturated on 4 L. Breath sounds are still generally diminished. Heart tones also diminished. Regular. Slightly tacky. Abdomen nontender. No unusual edema. No focal neurological deficits. blood sugar was 83 this morning. Impressions and plans: patient is continuing to improve on present medications. We'll wait for further pulmonary recommendations regarding discharge to home. Orders have been written for a walker and a bathroom chair. Discussed with patient and staff at bedside.
[2016-07-16 08:20] VITALS: BP 122/76; RESP 18
[2016-07-16 10:03] VITALS: PULSE 92
--- NOTE | 2016-07-16 11:11 | P.PN ---
Subjective Principal diagnosis: Acute exacerbation of COPD Patient seen and examined. Patient states he feels back to normal today. He was able to walk in the hallways yesterday. He states he still gets short of breath if he walks too quickly. The patient is asking for humidifier for his home oxygen. Objective - Vital Signs Vital signs: Vital Signs Temp 97.4 F L 07/16/16 07:00 Pulse 92 07/16/16 11:07 Resp 18 07/16/16 07:00 BP 122/76 07/16/16 07:00 Pulse Ox 94 L 07/16/16 07:14 Intake & Output 07/15/16 07/16/16 07/16/16 18:59 06:59 18:59 Intake Total 2009 Output Total 1200 Balance 810 Weight 74.843 kg Intake: Oral 2009 Output: Urine 1200 Other: Voiding Method Urinal Urinal Urinal # Voids 1 1 # Bowel Movements 1 - Exam Gen.: Patient is alert and oriented 3, no acute distress Cardiovascular: Regular rate and rhythm, S1/S2 Lungs: Diminished breath sounds bilaterally with prolonged expiratory phase Abdomen: Soft nontender nondistended positive bowel sounds Extremities: No edema - Labs CBC & Chem 7: 07/12/16 07:32 07/12/16 07:32 Labs: Abnormal Lab Results - Last 24 Hours (Table) 07/15/16 07/15/16 07/15/16 Range/Units 11:42 17:09 20:07 POC Glucose (mg/dL) 105 H 114 H 157 H (75-99) mg/dL Assessment and Plan Plan: Acute exacerbation of COPD and asthma, severe persistent, ALLERGIC Tracheobronchitis Bronchospasm Severe emphysema History of tobacco abuse Dyspnea on exertion Hypertension O2 to maintain saturation greater than equal to 88% Bronchodilators and Pulmicort Singulair Continue Xolair as an outpatient Continue Perforomist Discontinue theophylline due to tachycardia Incentive spirometry and pulmonary hygiene Discuss pulmonary rehab as an outpatient Steroid taper Okay to DC from pulmonary standpoint Prednisone taper Patient given prescription for humidifier for home oxygen Patient to follow up in the office early next week
--- NOTE | 2016-07-17 20:13 | DS ---
DATE OF ADMISSION: 07/09/2016 DATE OF DISCHARGE: 07/16/2016 Mr. Amaya is a 66-year-old gentleman who presented and admitted on the july presenting to the emergency room with shortness of breath and cough, decreased oxygen saturations at home. Patient had very severe chronic obstructive pulmonary disease. The patient was admitted. Consultation obtained with his logistics planning engineer Dr. Valdez Miguel. Please refer to pulmonary notes and consults. Patient was placed on IV corticosteroids, antibiotics and respiratory therapy and treatments. As mentioned on presentation EMS found his oxygen saturation down into the 70s and initially he was actually placed on BiPAP, which was weaned. He actually had been on methylprednisolone oral at home and antibiotics and failed outpatient treatment. Laboratory values on presentation revealed a white count of 4.8, hemoglobin 16.5 and a platelet count of 215. His INR was 1.1. Sodium was 137, potassium of 5, and CO2 content 27. BUN was 15 with creatinine 0.6, giving him a GFR greater than 60. Liver function tests were unremarkable with an albumin of 4.2. His blood sugar at that time was 145. Troponin was less than 0.012 and CK was 3.5. Chest x-ray showed no acute process and was consistent with COPD. His EKG showed sinus tachycardia with a right axis and P pulmonale. The patient was seen by physical therapy and gradually progressed, although he continued to have shortness of breath with exertion even in the room but he did continue to improve. He was also seen by Dr. Avalos from rehab, but felt not to be a full rehab candidate and the patient elected to return to home. His chest x-ray did not show any acute process and prednisone was gradually tapered. Orders were written for oxygen humidifier at home along with home nursing, a walker with seat and also shower chair. Discharge medications include: 1. Tapering dosages of prednisone as per pulmonary medicine. 2. He will be on a Ventolin inhaler 2 puffs 4 times a day p.r.n. 3. Albuterol and Atrovent respiratory treatments 4 times a day and p.r.n. 4. Symbicort 160/4.6, 2 inhalations twice a day. 5. Cardizem 50 mg 3 times a day. 6. Proscar 5 mg daily. 7. Flonase 2 sprays in each nostril daily. 8. Ativan 1 mg twice a day as needed for anxiety. 9. He is to finish off for another 5 days of Levaquin 500 mg daily. 10. Singulair 10 mg daily. 11. He is on Dilantin extended release 200 mg twice a day. Activities as tolerated. Diet as tolerated. FINAL DISCHARGE DIAGNOSES: 1. Acute on chronic respiratory failure with underlying very severe chronic obstructive pulmonary disease associated with asthma, severe and persistent, along with allergic tracheobronchitis and bronchospasm with underlying history of tobacco use. 2. Hypertension. 3. History of seizure disorder. 4. History of benign prostatic hypertrophy. 5. History of previous colon resection for diverticular disease. 6. Previous surgeries that include right knee replacement in the past. Once again, overall prognosis is extremely guarded. Pulmonary has discussed with patient possible pulmonary rehab as an outpatient along with resuming his Xolair as an outpatient. During this admission his theophylline was discontinued due to tachycardia. MTDD
== END 2016-07-16 12:25 | disposition home health service (06) | DRG 190 ==
LOC: EC 17:45 → 5ONC 21:18
PROVIDERS: ADMIT Internal Medicine; ATTEND Internal Medicine
DX: J44.0 Chronic obstructive pulmonary disease with (acute) lower respiratory infection (principal); J96.20 Acute and chronic respiratory failure, unspecified whether with hypoxia or hypercapnia; Z99.81 Dependence on supplemental oxygen; J45.51 Severe persistent asthma with (acute) exacerbation; J44.1 Chronic obstructive pulmonary disease with (acute) exacerbation; G40.909 Epilepsy, unspecified, not intractable, without status epilepticus; M19.90 Unspecified osteoarthritis, unspecified site; N40.0 Benign prostatic hyperplasia without lower urinary tract symptoms; F41.0 Panic disorder [episodic paroxysmal anxiety]; I49.3 Ventricular premature depolarization; R26.2 Difficulty in walking, not elsewhere classified; I10 Essential (primary) hypertension; Z96.651 Presence of right artificial knee joint; Z87.891 Personal history of nicotine dependence; Z79.51 Long term (current) use of inhaled steroids; Z79.52 Long term (current) use of systemic steroids; Z79.899 Other long term (current) drug therapy
CPT/HCPCS: 36415; 71010; 80048; 80053; 80198; 82550; 82553; 83036; 84484; 85025; 85610; 85730; 93005; 94640; 94644; 94660; 94667; 94668; 94760; 96374; 99285

== ENCOUNTER 2016-09-13 07:55 | Day surgery (SDC) | payer MEDICARE ==
[2016-09-09 13:52] VITALS: BMI 23.0
[~2016-09-13 07:55] MED LIST: LACTATED RINGERS 1,000 ML IV SCH
[2016-09-13 08:20] VITALS: RESP 16; TEMP 97.7
[2016-09-13] MEDS ORDERED: PROPOFOL 10 MG/ML 20 ML VIAL IV ONE (08:49)
[2016-09-13 09:55] VITALS: BP 131/70; PULSE 93
--- NOTE | 2016-09-27 12:33 | P.OP ---
Date of Procedure: 09/13/16 Preoperative Diagnosis: Screening. History of colon polyps tubular adenomas. Postoperative Diagnosis: Sigmoid polyp. Mild diverticulosis. Procedure(s) Performed: Colonoscopy and snare polypectomy. Implants: Anesthesia: MAC Surgeon: Hunter Sommer Pathology: other (Sigmoid polyp) Condition: stable Disposition: same day Indications for Procedure: Screening. History of colon polyps tubular adenomas. Operative Findings: 1 a small sigmoid polyp. 2 mild diverticulosis. Description of Procedure: With the patient in the left lateral position rectal digital examination was normal there no palpable masses. No prostatic masses. The video colonoscope was inserted transanally and advanced all the way to the cecum which was entered without visualized. The mucosa were thoroughly examined. Findings. One sigmoid polyp about 3-4 mm in diameter. This was removed completely with the snare cautery with good hemostasis. Mild diverticulosis. The patient tolerated the procedure well without any evident complication. Recommendation high fiber diet. Follow-up colonoscopy in about 5 years in view of polyp.
== END 2016-09-13 10:31 | disposition home or self-care (01) ==
LOC: ORWHC2ENDO 07:55
PROVIDERS: ATTEND Surgery
DX: Z12.11 Encounter for screening for malignant neoplasm of colon (principal); D12.5 Benign neoplasm of sigmoid colon; Z86.010 Personal history of colon polyps; K57.30 Diverticulosis of large intestine without perforation or abscess without bleeding; J44.9 Chronic obstructive pulmonary disease, unspecified; I10 Essential (primary) hypertension; G40.909 Epilepsy, unspecified, not intractable, without status epilepticus; Z79.51 Long term (current) use of inhaled steroids; Z79.52 Long term (current) use of systemic steroids; Z79.899 Other long term (current) drug therapy; Z85.46 Personal history of malignant neoplasm of prostate; Z87.891 Personal history of nicotine dependence
CPT/HCPCS: 88305; 45385; J2704